=== PATIENT | male | born 1935 | race Caucasian/White ===

== ENCOUNTER 2017-07-08 10:33 | Observation (INO) ==
[2017-07-08 11:04] LABS: Basophils % 0.7 %; Eosinophils # 0.1 K/mcL (0.0-0.6); Hemoglobin 14.9 g/dL (12.9-16.9); Immature Granulocytes % 0.2 % (0-4); Lymphocytes # 1.6 K/mcL (0.6-4.6); Lymphocytes % 25.5 %; Mean Corpuscular HGB Conc 33.9 g/dL (31.6-35.5); Mean Corpuscular Hemoglobin 30.7 pg (28.0-33.3); Mean Corpuscular Volume 90.7 fL (83.0-100.0); Mean Platelet Volume 8.7 fL (9.4-12.4); Monocytes # 0.5 K/mcL (0.0-1.3); Monocytes % 8.2 %; Neutrophils # 3.9 K/mcL (1.6-8.9); Platelet Count 166 K/mcL (140-400); Red Blood Count 4.85 M/mcL (4.19-5.50); Red Cell Distribution Width 12.4 % (11.5-14.5); Segmented Neutrophils % 64.4 %
[2017-07-08 11:11] LABS: Prothrombin Time 10.3 Seconds (9.4-12.1)
[2017-07-08 11:14] LABS: Activated Partial Thrombo Time 30.6 Seconds (26.0-36.0)
[2017-07-08 11:15] LABS: BUN/Creatinine Ratio 13 (6-26); Blood Urea Nitrogen 15 mg/dL (8-26); Calcium 8.9 mg/dL (8.6-10.8); Carbon Dioxide 24 mEq/L (19-29); Chloride 104 mEq/L (98-109); Glucose 103 mg/dL (70-99); Osmolality,Calculated 289 (280-300); Potassium 4.5 mEq/L (3.5-4.5); Sodium 139 mEq/L (136-145); eGFR For African Americans > 60 (> 60); eGFR For Non-African Americans > 60 (> 60)
[2017-07-08] MEDS ORDERED: Aspirin 81 MG TAB.CHEW PO STA (11:23)
--- NOTE | 2017-07-08 11:31 | Emergency Department Note ---
Disposition Clinical Impression: Elevated troponin, Unstable angina Chest pain Qualifiers: Chest pain type: unspecified Qualified Code(s): R07.9 - Chest pain, unspecified Disposition: Admitted As Inpatient Condition: Fair Time of Disposition: 11:40 Chest Pain HPI - General Chief Complaint: ED Chest Pain Stated Complaint: chest pain Time Seen by Provider: 07/08/17 10:40 Source: patient Limitations: no limitations Vital Signs Reviewed: Yes Nursing Notes Reviewed: Yes - History of Present Illness HPI Narrative: 82-year-old male history of CAD s/p 2 stents (2009, 2005) presents to the ED for chest pain. He reports a heaviness on his chest with exertion. Last occurrence at 9 o'clock getting out of the shower. Pain improves with rest. He has some associated shortness of breath. This has become more frequent over the past 3 weeks. His landscape architect and planner Dr. Elias had called him to come to the emergency department for further evaluation and likely admission for unstable angina. He has nitride home but has not used any as rest typically resolves the pain. Patient denies any recent illness. He denies any history of blood clots. Denies any other complaints at this time. He is chest pain free at this time at rest. He has taken his baby aspirin this morning. Pt complaint: chest pain Severity scale (1-10): 0 - Related Data Home Medications Medication Instructions Recorded Confirmed Aspirin [Lo-Dose Aspirin EC] 81 mg PO DAILY 07/08/17 07/08/17 Finasteride [Proscar] 5 mg PO DAILY 07/08/17 07/08/17 Losartan [Cozaar] 25 mg PO DAILY 07/08/17 07/08/17 Metoprolol [Lopressor] 25 mg PO BID 07/08/17 07/08/17 Nitroglycerin [Nitrostat] 0.4 mg SL Q5M PRN 07/08/17 07/08/17 [place]-3/Dha/Epa/Fish Oil [Fish Oil 1 cap PO DAILY 07/08/17 07/08/17 1,000 mg Softgel] Simvastatin [Zocor] 40 mg PO HS 07/08/17 07/08/17 Vitamin E Acetate [Vitamin E] 400 unit PO DAILY 07/08/17 07/08/17 metFORMIN [Glucophage] 500 mg PO BID 07/08/17 07/08/17 Previous Rx's Medication Instructions Recorded Clopidogrel [Plavix] 75 mg PO DAILY #30 tablet 07/09/17 Allergies Allergy/AdvReac Type Severity Reaction Status Date / Time No Known Allergies Allergy Verified 07/08/17 11:00 All systems ED: reviewed and negative except as stated. Review of Systems: As Per HPI Constitutional: Denies: fever, chills ENT ED: Denies: congestion, dysphagia Cardiovascular: Reports: chest pain, dyspnea on exertion. Denies: palpitations Respiratory: Reports: dyspnea. Denies: cough Gastrointestinal: Denies: abdominal pain, nausea, vomiting Genitourinary: Denies: urgency, dysuria Musculoskeletal: Denies: back pain Integumentary: Denies: rash, abrasion Neurological: Denies: headache Chest Pain PMH - Past Medical History Medical history: Reports: coronary artery disease, hypertension Psychiatric history: Reports: no psych history - Social History Smoking Status: Never smoker Alcohol use: Reports: none Drug use: Reports: none Physical Exam - General Limitations: no limitations General appearance: alert - Head Head exam: atraumatic, normocephalic, normal inspection - Eye Eye exam: Present: normal appearance, PERRL, EOMI - ENT ENT exam: normal exam, normal oropharynx, mucous membranes moist - Neck Neck exam: Present: normal inspection, full ROM, trachea midline - Chest Chest inspection: Present: normal inspection, symmetric chest wall rise - Respiratory Respiratory exam: Present: normal lung sounds bilaterally. Absent: respiratory distress, wheezes - Cardiovascular Cardiovascular exam: Present: regular rate, normal rhythm, normal heart sounds. Absent: systolic murmur, diastolic murmur - Abdominal Exam Abdominal exam: Present: soft, Non-Tender, normal bowel sounds. Absent: tenderness, distention, guarding, rebound, rigidity - Extremities Exam Extremities exam: Present: normal inspection, full ROM, normal capillary refill. Absent: tenderness, pedal edema, calf tenderness - Back Exam Back exam: Present: normal inspection, full ROM. Absent: tenderness, CVA tenderness (R), CVA tenderness (L), vertebral tenderness - Neurological Exam Neurological exam: Present: alert, oriented X3 - Psychiatric Psychiatric exam: Present: normal affect, normal mood - Skin Skin exam: Present: warm, dry, intact, normal color Course - Reevaluation(s) Reevaluation #1: Critical Troponin 0.04. Patient has been given a full dose aspirin here. Vital signs remain stable. He remains asymptomatic at this time. He will be admitted for chest pain and unstable angina. Patient is in agreement with plan. Will not start on a low dose heparin drip at this time as patient is chest pain free and may require heart catheterization at landscape architect and planner discretion. - Consultations Consultation #1: Spoke with on-call hospitalist greyson Anna to admit for unstable angina, elevated troponin. No further orders at this time Time: 11:52 Vital Signs Temperature 97.7 F 07/08/17 10:48 Pulse Rate 57 07/08/17 10:48 Respiratory Rate 18 07/08/17 10:48 Blood Pressure 108/62 07/08/17 10:48 O2 Sat by Pulse Oximetry 99 07/08/17 10:48 Temperature 98.5 F 07/09/17 07:23 Pulse Rate 56 07/09/17 08:17 Respiratory Rate 18 07/09/17 07:23 Blood Pressure 145/69 07/09/17 07:23 O2 Sat by Pulse Oximetry 95 07/09/17 07:23 Oxygen Delivery Oxygen Delivery Room Air Chest Pain - MDM Narrative Medical decision making narrative: Patient was discussed with my attending physician who agrees with ED management and final disposition. They independently evaluated the patient. Please refer to their attestation to this encounter for additional information. This note was generated by [employer] voice recognition software and as a result grammatical or spelling errors may occur using this program. - Medical Records Medical records reviewed: Yes I reviewed the patient's medical records. - Lab Data Lab results reviewed: Yes I reviewed the patient's lab results. Result diagrams: 07/09/17 03:40 07/09/17 03:40 Lab Results 07/08/17 07/08/17 07/08/17 Range/Units 10:50 10:50 10:50 WBC 6.1 (4.3-11.1) K/mcL RBC 4.85 (4.19-5.50) M/mcL Hgb 14.9 (12.9-16.9) g/dL Hct 44.0 (37.5-50.1) % MCV 90.7 (83.0-100.0) fL MCH 30.7 (28.0-33.3) pg MCHC 33.9 (31.6-35.5) g/dL RDW 12.4 (11.5-14.5) % Plt Count 166 (140-400) K/mcL MPV 8.7 L (9.4-12.4) fL Immature Gran % 0.2 (0-4) % Seg Neutrophils % 64.4 % Lymphocytes % 25.5 % Monocytes % 8.2 % Eosinophils % 1.0 % Basophils % 0.7 % Neutrophils # 3.9 (1.6-8.9) K/mcL Lymphocytes # 1.6 (0.6-4.6) K/mcL Monocytes # 0.5 (0.0-1.3) K/mcL Eosinophils # 0.1 (0.0-0.6) K/mcL Basophils # 0.0 (0.0-0.2) K/mcL PT 10.3 (9.4-12.1) Seconds INR 1.0 APTT 30.6 (26.0-36.0) Seconds Sodium 139 (136-145) mEq/L Potassium 4.5 (3.5-4.5) mEq/L Chloride 104 (98-109) mEq/L Carbon Dioxide 24 (19-29) mEq/L BUN 15 (8-26) mg/dL Creatinine 1.12 (0.72-1.25) mg/dL Est GFR ( Amer) > 60 (> 60) Est GFR (Non-Af Amer) > 60 (> 60) BUN/Creatinine Ratio 13 (6-26) Glucose 103 H (70-99) mg/dL Calculated Osmolality 289 (280-300) Calcium 8.9 (8.6-10.8) mg/dL Troponin I (0-0.03) ng/mL 07/08/17 Range/Units 10:50 WBC (4.3-11.1) K/mcL RBC (4.19-5.50) M/mcL Hgb (12.9-16.9) g/dL Hct (37.5-50.1) % MCV (83.0-100.0) fL MCH (28.0-33.3) pg MCHC (31.6-35.5) g/dL RDW (11.5-14.5) % Plt Count (140-400) K/mcL MPV (9.4-12.4) fL Immature Gran % (0-4) % Seg Neutrophils % % Lymphocytes % % Monocytes % % Eosinophils % % Basophils % % Neutrophils # (1.6-8.9) K/mcL Lymphocytes # (0.6-4.6) K/mcL Monocytes # (0.0-1.3) K/mcL Eosinophils # (0.0-0.6) K/mcL Basophils # (0.0-0.2) K/mcL PT (9.4-12.1) Seconds INR APTT (26.0-36.0) Seconds Sodium (136-145) mEq/L Potassium (3.5-4.5) mEq/L Chloride (98-109) mEq/L Carbon Dioxide (19-29) mEq/L BUN (8-26) mg/dL Creatinine (0.72-1.25) mg/dL Est GFR ( Amer) (> 60) Est GFR (Non-Af Amer) (> 60) BUN/Creatinine Ratio (6-26) Glucose (70-99) mg/dL Calculated Osmolality (280-300) Calcium (8.6-10.8) mg/dL Troponin I 0.04 H* (0-0.03) ng/mL - Radiology Data Radiology results reviewed: Yes I reviewed the patient's radiology results. Chest X-Ray 07/08/17 10:40 IMPRESSION: No acute abnormality. D/ / David Mason MD / David Mason MD Interpreting Provider: David Mason MD - EKG Data EKG attestation: Yes I reviewed and interpreted this EKG. EKG results narrative: EKG performed 1041 sinus bradycardia 52 bpm, normal axis, old Q waves in inferior leads, no ST elevations or depression, no T wave inversion, intervals are within normal limits. Compared to old EKG performed 04/17/2000 shows sinus rhythm with significant ST elevation in inferior leads. No acute ischemic changes today. Heart Score - Score History: Highly Suspicious EKG: Non Specific repolarisation Disturbance Age: Greater than 65 Risk Factors: Equal/Greater than 3 risk factor or history of atherosclerotic disease Troponin: 1-3x normal limit HEART Score Total: 8 Attestation Statement - Attestation Attestation: I, Roberto Dawn, examined this patient and my medical decision-making was reviewed with the SCRUBBER OPERATOR/PA/Advanced Practice Nurse/Resident Physician. I agree with the documented findings, disposition and treatment plan as described except to the extent set forth below. 82-year-old male presents emergency department for evaluation of likely unstable angina. Patient has chest pain associated with increasingly light tasks at home. Pain improves with rest. Patient has no current pain in the emergency department. Last chest pain was this morning when showering. Patient spoke with his landscape architect and planner who recommended he be evaluated in emergency department for further care of his chest pain. Initial troponin negative. EKG did not show evidence of acute STEMI. She will be admitted for further evaluation of his acute chest pain.
--- NOTE | 2017-07-08 13:13 | Internal Med History&Physical ---
Date of Encounter: 07/08/17 Time of Encounter: 11:00 Assessment and Plan (1) Chest pain Current visit: Yes Status: Acute -Patient with chest pressure on exertion and found to have elevated troponin in the ER. -Will continue to trend troponins and monitor on telemetry. -Cardiology consulted and appreciate recommendations. Qualifiers: Chest pain type: unspecified Qualified Code(s): R07.9 - Chest pain, unspecified (2) CAD (coronary artery disease) Current visit: Yes Status: Acute -Patient with a history of cardiac stents 2 in 1999 and 2005. -ACS rule out as above. Qualifiers: Coronary Disease-Associated Artery/Lesion type: [place] artery Qualified Code(s): I25.10 - Atherosclerotic heart disease of [place] coronary artery without angina pectoris (3) HTN (hypertension) Current visit: Yes Status: Acute -Continue beta fatemeh Qualifiers: Hypertension type: essential hypertension Qualified Code(s): I10 - Essential (primary) hypertension (4) HLD (hyperlipidemia) Current visit: Yes Status: Acute -Continue statin. Qualifiers: Hyperlipidemia type: unspecified Qualified Code(s): E78.5 - Hyperlipidemia , unspecified (5) Diabetes Current visit: Yes Status: Acute -Will hold oral diabetic meds and cover with sliding scale insulin. Qualifiers: Diabetes mellitus type: type 2 Diabetes mellitus complication status: without complication Qualified Code(s): E11.9 - Type 2 diabetes mellitus without complications (6) BPH (benign prostatic hyperplasia) Current visit: Yes Status: Acute -Continue home dose of finasteride Qualifiers: Lower urinary tract symptom detail: unspecified Qualified Code(s): N40.1 - Benign prostatic hyperplasia with lower urinary tract symptoms Internal Medicine - H&P: HPI Chief complaint: chest pain Admitted From: Home Plans for Post Hospital Care: Home History of present illness: Patient is an 82-year-old male with past medical history significant for coronary arterial disease (stents 2 in ), hypertension, hyperlipidemia and diabetes who presents to the ER on 07/08/17 with chest pressure. Patient reports a three-week history of chest pressure on exertion which is substernal and is relieved with rest. Patient reports of associated symptoms of shortness of breath and fatigue. He states that his symptoms of chest pressure feels like his first UT in 1999. Patient was seen by his hearing therapist today and was sent to the ER for further evaluation and management. In the ER, patients first troponin was 0.04. Patient will be admitted to the medical surgical floor for management of non- STEMI. Past Med Surg Social Fam HX - Past Medical History Medical history: coronary artery disease, hypertension Psychiatric history: no psych history - Social History Smoking Status: Never smoker Smokeless Tobacco Status: No Alcohol use: none Drug use: none Internal Medicine - H&P: Meds Aspirin [Lo-Dose Aspirin EC] 81 mg PO DAILY 07/08/17 [History] Finasteride [Proscar] 5 mg PO DAILY 07/08/17 [History] Losartan [Cozaar] 25 mg PO DAILY 07/08/17 [History] Metoprolol [Lopressor] 25 mg PO BID 07/08/17 [History] Nitroglycerin [Nitrostat] 0.4 mg SL Q5M PRN 07/08/17 [History] [place]-3/Dha/Epa/Fish Oil [Fish Oil 1,000 mg Softgel] 1 cap PO DAILY 07/08/17 [ History] Simvastatin [Zocor] 40 mg PO HS 07/08/17 [History] Vitamin E Acetate [Vitamin E] 400 unit PO DAILY 07/08/17 [History] metFORMIN [Glucophage] 500 mg PO BID 07/08/17 [History] 3 Allergy/AdvReac Type Severity Reaction Status Date / Time No Known Allergies Allergy Verified 07/08/17 11:00 All Systems PM: A 10-system review of systems was performed and is negative for pertinent findings except as documented above in the HPI. - Constitutional Vitals: Temp Pulse Resp BP Pulse Ox 98 F 47 18 168/80 97 07/08/17 12:50 07/08/17 12:50 07/08/17 12:50 07/08/17 12:50 07/08/17 12:50 General appearance: Present: A&O X 3, no acute distress - Head Head exam: Present: normocephalic - Eye Eye exam: Present: normal appearance - ENT ENT exam: Present: mucous membranes moist - Expanded Neck Exam Neck exam: Absent: carotid bruit - Respiratory Respiratory exam: Present: CTAB. Absent: accessory muscle use, rales, rhonchi, wheezes - Cardiovascular Cardiovascular exam: Present: RRR, +S1, +S2. Absent: diastolic murmur, gallop, rubs, systolic murmur - GI/Abdominal GI/Abdominal exam: Present: normal bowel sounds, soft, no peritoneal signs. Absent: distended, tenderness - Extremities Exam Extremities exam: Absent: pedal edema - Neurological Exam Neurological exam: Present: oriented X3, no focal deficits - Psychiatric Psychiatric exam: Present: normal mood - Skin Skin exam: Present: normal color Internal Med - H&P Results - Labs CBC & Chem 7: 07/08/17 10:50 07/08/17 10:50
[2017-07-08] MEDS ORDERED: Naloxone 0.4 MG/ML INJ IVP PRN (13:17)
[2017-07-08] MEDS ORDERED: Nitroglycerin 0.4 MG TAB.SUBL SL PRN (13:20)
[2017-07-08] MEDS ORDERED: Dextrose Gel 15 GM PO PRN (13:27)
[2017-07-08] MEDS ORDERED: *HR* Heparin 5,000 UNIT/ML VIAL IVP PRN ×2 (13:59)
[2017-07-08] MEDS ORDERED: *HR* Heparin 5,000 UNIT/ML VIAL IVP ONE (13:59)
--- NOTE | 2017-07-08 13:59 | Event Note ---
<Buster Real - Last Filed: 07/08/17 14:09> Date of Encounter: 07/08/17 Time of Encounter: 13:50 - Cardiology Event Note Full cardiology H&P per clinic note by Dr. Elias. See scanned note in [facility] for details. Updates: Mr. Haney is an 82yo man with hx of htn, DM2, prior MIx2 with stents in 1998 and 2007 who presents to the ED per instructions by Dr. Elias for typical anginal chest pain that has been going on for 3 months. He has had chest pressure and pain that radiates to his arm, SOB, and nausea that is worsened by exertion and relieved by rest. These symptoms have been getting worse, and yesterday they reached a climax while taking a shower and completing ADLs. He says that the feeling is similar to previous MIs that he's had. Denies acute chest pain, SOB, diaphoresis, palpitations. Limited PE: Heart: S1,S2 normal, RRR, No murmurs, rubs, or gallops Lungs: CTAB with increased bronchial sounds Abdomen: Soft, non-tender Extremities: Trace b/l pedal edema Labs/Imaging: CXR: no acute findings EKG: Sinus bradycardia, flattened ST-T waves in lateral leads Trop 0.04 TTE (2012) LVEF 40% with dilated LV, Mild pulm htn. Repeat echo pending Plan: 1. Continue ASA, Statin, BB 2. Heparin, ACS Protocol 3. Repeat Echo, trend troponin 4. Patient will need LHC, maintain NPO until post-procedure <Casey Moscoso - Last Filed: 07/08/17 15:55> Date of Encounter: 07/08/17 - Cardiology Event Note I examined this patient and my medical decision-making was reviewed with the Resident Physician. I agree with the documented findings, disposition and treatment plan as described except to the extent set forth below. Unstable angina referred by Dr. Elias for LHC. EKG non acute
[2017-07-08] MEDS ORDERED: Heparin 25,000 UNIT/500 ML D5W 25,000 UNIT/500 ML MLS IVC SCH (14:00)
[2017-07-08 14:24] LABS: Hematocrit 42.2 % (37.5-50.1); Hemoglobin 14.4 g/dL (12.9-16.9); Mean Corpuscular HGB Conc 34.1 g/dL (31.6-35.5); Mean Corpuscular Volume 90.9 fL (83.0-100.0); Mean Platelet Volume 8.9 fL (9.4-12.4); Platelet Count 160 K/mcL (140-400); Red Blood Count 4.64 M/mcL (4.19-5.50); Red Cell Distribution Width 12.5 % (11.5-14.5)
[2017-07-08 14:33] LABS: Prothrombin Time 10.9 Seconds (9.4-12.1)
[2017-07-08 14:36] LABS: Activated Partial Thrombo Time 31.2 Seconds (26.0-36.0)
[2017-07-08] MEDS ORDERED: *HR* Heparin 10,000 UNIT/10 ML VIAL ONE (15:03)
[2017-07-08] MEDS ORDERED: 0.9 % Sodium Chloride 1,000 ML ONE ×2 (15:03→15:20)
[2017-07-08] MEDS ORDERED: Nitroglycerin 1,000 MCG/10 ML VIAL IV ONE (15:03)
--- NOTE | 2017-07-08 15:17 | Pre-Sedation Evaluation ---
Pre-sedation evaluation - Pre-sedation checklist Date of procedure: 07/08/17 Procedure: [facility] Recent Vitals: Last Vital Signs Temp 98 F 07/08/17 12:50 Pulse 47 07/08/17 12:50 Resp 18 07/08/17 12:50 BP 168/80 07/08/17 12:50 Pulse Ox 97 07/08/17 12:50 H&P (including ROS) documented in medical record: Yes Previous reaction to sedatives/anesthetics: No Dietary Status: NPO after Midnight Airway Assessment: Patient can open mouth completely, TMJ function normal, Micrognathia (under-bite, receding chin) absent, Neck with adequate range of motion Dentition: No loose teeth or bridges Possible difficult airway: No ASA Classification *see protocol: CLASS II-Mild systemic disease Plan of Care: Pt appropriate candidate for procedure/moderate/conscious sedation , Risks/benefits of procedure/sedation discussed w/ patient/family
[2017-07-08] MEDS ORDERED: *HR* Midazolam HCl 2 MG/2 ML VIAL ONE ×2 (15:18→15:43)
[2017-07-08] MEDS ORDERED: *HR* FentaNYL (PF) 100 MCG/2 ML VIAL ONE (15:18)
[2017-07-08] MEDS ORDERED: *HR* Bivalirudin 250 MG VIAL IVC ONE ×2 (15:32→16:02)
[2017-07-08] MEDS ORDERED: Nitroglycerin 25 MG/250 ML INFUS..BTL IVC ONE (15:34)
[2017-07-08] MEDS ORDERED: *HR* Ticagrelor 90 MG TABLET ONE (16:11)
[2017-07-08] MEDS ORDERED: Acetaminophen 325 MG TABLET PO PRN (16:25)
[2017-07-08] MEDS ORDERED: 0.9 % Sodium Chloride 1,000 ML IVC SCH (16:30)
--- NOTE | 2017-07-08 16:33 | Invasive Diagnostic Lab Proc ---
Name: Matt Haney Date of Study: 07/08/2017 Date: 1935 Ht: 68.9in Medical Record#: [id number] Age: 82 Wt: 184.97lb Gender: Male BSA: 2. Order #: [id number] BMI: 27.4 Physicians Procedure Physician: Keke Braun MD, FACC Referring MD: Referring MD: Staff Name Position Time In Annabella Guerra RT (R) Scrub 03:13 PM RobbieAlessandro RT (R) Monitor 03:13 PM Thaddeus Sterling RN Driver Salesman 03:13 PM Gabriele Tillman RN Driver Salesman 03:23 PM Indications Indication Non-Stemi Procedures Performed Procedure CORONARY ARTERY ANGIO S&I PRQ CARD MEENU STENT W/ANGIO 1 VSL PRQ CARD STENT W/ANGIO ADDL Pre-Procedure Checklist Informed consent is complete signed and on chart. H&P is on chart. ID band is on and ID verified with patient. Patient NPO for procedure The procedure was described for the patient and questions were answered. Blood Pressure: 197/94 ECG is on chart. Rhythm: NSR w 1st degree block Plan of Care Patient will tolerate the procedure without complications. Adequate level of comfort will be maintained. Hemodynamics will remain stable Patient will recover from procedure without complications. Respiratory function will be maintained. Cardiac rhythm will remain stable. Patient temperature will be maintained. Patient and/or family have verbalized understanding of the procedure. Patient Education Chief Complaint/Reason for Test: Cardiac Cath Developmental Category: Geriatric (65+ years) Developmentally Appropriate for Age: Yes Learning Barriers: None Education Needs: Procedure Education Method: Verbal Information Taught: Cardiac Cath Educational Evaluation: Able to repeat information Intravenous Access Time IV Size Location DC'd Fluid/Drip Rate Units RN 03:14 PM 18g 1 1/4" Peripheral-Lock On Arrival Rt Antecubital 0.9NaCl 25 ml Thaddeus Sterling RN Allergies No Known Allergies Vital Signs Time BP (mmHg) HR (bpm) O2 Sat. RR (bpm) LOC 03:14 PM 197 / 94 61 100 % 18 5 = Fully awake and oriented or at pre-proc level 03:14 PM / % 4 = Oriented but drowsy 03:29 PM / % 4 = Oriented but drowsy 03:45 PM / % 4 = Oriented but drowsy 04:00 PM / % 5 = Fully awake and oriented or at pre-proc level 03:21 PM 197 / 112 76 98 % 22 03:23 PM 204 / 101 61 100 % 17 03:25 PM 195 / 94 75 100 % 14 03:30 PM 190 / 92 68 96 % 13 03:35 PM 180 / 89 51 98 % 16 03:40 PM 181 / 87 68 98 % 19 03:45 PM 153 / 81 69 98 % 23 03:49 PM 144 / 84 71 96 % 23 03:54 PM 161 / 72 72 94 % 16 03:59 PM 162 / 85 68 96 % 14 04:05 PM 150 / 73 72 96 % 20 04:09 PM 146 / 72 75 96 % 16 04:15 PM 161 / 75 67 96 % 20 Procedural Medications Time Medication Dose Units Method Given By 03:22 PM Oxygen 2 L/min nasal cannula Thaddeus Sterling RN 03:22 PM Versed 2 mg Intravenous Thaddeus Sterling RN 03:22 PM Fentanyl 50 mcg Intravenous Thaddeus Sterling RN 03:27 PM Lidocaine 2% 16 ml Subcutaneous Keke Braun MD, FACC 03:39 PM Nitroglycerin 10 mcg/min Intravenous Gabriele Tillman RN 03:40 PM Angiomax 1.75mg/kg/hr: 13 ml Intravenous Gabriele Tillman RN 03:42 PM Angiomax 1.75mg/kg/hr: 30 ml Intravenous Gabriele Tillman RN 03:44 PM Versed 1 mg Intravenous Gabriele Tillman RN 03:44 PM Fentanyl 25 mcg Intravenous Gabriele Tillman RN 03:50 PM Nitroglycerin 200 mcg Intracoronary Keke Braun MD, FACC 03:50 PM Nitroglycerin 5 mcg/min Intravenous Gabriele Tillman RN 03:51 PM Nitroglycerin 200 mcg Intracoronary Keke Braun MD, FACC 03:59 PM Nitroglycerin 200 mcg Intracoronary Keke Braun MD, FACC 04:07 PM Nitroglycerin 200 mcg Intracoronary Keke Braun MD, FACC 04:15 PM Brilinta 180 mg Orally Gabriele Tillman RN ASA Classification: CLASS II- Mild systemic disease (i.e. well-controlled diabetes, hypertension, asthma, cigarette smoking) Keiry Score Preprocedure Postprocedure Activity 2- Moves 4 extremities sustained head lift Activity 2- Moves 4 extremities sustained head lift Circulation 2- SBP +/= 20 points of pre-anesthetic level Circulation 2- SBP +/= 20 points of pre-anesthetic level Consciousness 2- Awake and alert oriented x 3 Consciousness 2- Awake and alert oriented x 3 O2 Saturation 2- Able to maintain O2 satruation of 92% on room air O2 Saturation 2- Able to maintain O2 satruation of 92% on room air Respiratory 2- Able to deep breathe and cough well Respiratory 2- Able to deep breathe and cough well Total Score 10 Total Score 10 Contrast Agent: Isovue Diagnostic Contrast: 186 ml Total Contrast: 186 ml Fluoro Dose: 732 mGy Procedure Log Time Note Enter By 03:13 PM Annabella Guerra RT (R) Position: Scrub Time in: 15:13 [email or web address] 03:13 PM Alessandro Avalos RT (R) Position: Monitor Time in: 15:13 [email or web address] 03:13 PM Thaddeus Sterling RN Position: Driver Salesman Time in: 15:13 [email or web address] 03:13 PM Patient charges- Angio tray pack, Navilyst 3mm J, Pulse Oximetry and ACIST tubing and transducer [email or web address] 03:14 PM Pt arrived to laborer/key man 1 at 15:14 [email or web address] 03:14 PM Time: 15:14 Patient comfortable and pain free: Yes [email or web address] 03:14 PM Time: 15:14LOC: 5 = Fully awake and oriented or at pre-proc level [email or web address] 03:15 PM Physician arrived 15:15 [email or web address] 03:15 PM Meet and greet completed [email or web address] 03:15 PM Sign in performed according to hospital policy. [email or web address] 03:15 PM Procedure start 15:15 [email or web address] 03:15 PM CathStat 03:16 PM ASA Class CLASS II- Mild systemic disease (i.e. well-controlled diabetes, hypertension, asthma, cigarette smoking) [email or web address] 03:17 PM Case Delayed No [email or web address] 03:19 PM Hair removed from procedure site in holding area using clippers. Bilateral groin prepped with Chloraprep by Constance Villasenor RT (R), safety strap applied then patient was draped. Skin intact. [email or web address] 03:19 PM Vitals capture started with the following parameters, Patient=Adult, Interval=5 min, Initial Siebtnga=700 mmHg, Deflation Rate=5 mmHg, Cuff placed on Right Arm 03:19 PM Recorded ECG: HR=75 Condition=Condition 1 03:21 PM HR=76 bpm, DTGT=893/112 mmhg, SpO2=98.0 %, Resp=22 B/min 03:22 PM Time: 15:22 Oxygen on at 2 L/min per nasal cannula by Thaddeus Sterling RN 03: PM Time: 15:22 Versed 2 mg Intravenous Given by Thaddeus Sterling RN 03: PM Time: 15:22 Fentanyl 50 mcg Intravenous Given by Thaddeus Sterling RN 03:22 PM Vitals capture stopped. 03:22 PM Vitals capture started with the following parameters, Patient=Adult, Interval=5 min, Initial Heultjmh=622 mmHg, Deflation Rate=5 mmHg, Cuff placed on Right Arm 03:23 PM Gabriele Tillman RN Position: Driver Salesman Time in: 15:23 03:23 PM HR=61 bpm, EPRL=285/101 mmhg, SfN9=836.0 %, Resp=17 B/min 03:24 PM Vitals capture stopped. 03:24 PM Vitals capture started with the following parameters, Patient=Adult, Interval=5 min, Initial Gsvfnffq=992 mmHg, Deflation Rate=5 mmHg, Cuff placed on Right Arm 03:25 PM HR=75 bpm, OHKD=469/94 mmhg, GlT7=452.0 %, Resp=14 B/min 03:25 PM Time out performed according to hospital policy 03:25 PM Clinical Presentation: Non-STEMI 03:26 PM Pressure channel 1 zero failed. 03:27 PM Pressure channel 1 zeroed. 03:28 PM Time: 15:27 16 ml Lidocaine 2% to right groin Subcutaneous Given by Keke Braun MD, [facility] 03:28 PM Access obtained by percutaneous puncture. 5Fr 10cm Terumo Tyler sheath placed in right Femoral artery. [id number] 03:28 PM 0.035 145cm Navilyst 3mmJ wire [id number] [facility] 03:28 PM 5Fr FL 4 catheter inserted over the wire [facility] 03:29 PM Recorded Pressure: Ao, HR=69, Condition=Condition 1 (Aorta) Ao 220/71/127 03:29 PM Pressure channel 1 zeroed. 03:29 PM Time: 15:14LOC: 4 = Oriented but drowsy [email or web address] 03:29 PM Time: 15:14 Patient comfortable and pain free: Yes [email or web address] 03:30 PM LCA angiography performed in multiple views. [email or web address] 03:30 PM HR=68 bpm, WQTY=693/92 mmhg, SpO2=96.0 %, Resp=13 B/min 03:30 PM Recorded Pressure: Ao, HR=66, Condition=Condition 1 (Aorta) Ao 167/80/116 03:31 PM Catheter removed [email or web address] 03:31 PM 5Fr FR 4 catheter inserted over the wire DN [email or web address] 03:32 PM RCA angiography performed in multiple views. [email or web address] 03:33 PM Recorded Pressure: Ao, HR=54, Condition=Condition 1 (Aorta) Ao 165/70/112 03:33 PM Catheter removed [email or web address] 03:33 PM Physician reviewing films [email or web address] 03:34 PM Coronary Dominance: right [email or web address] 03:35 PM HR=51 bpm, TNHJ=551/89 mmhg, SpO2=98.0 %, Resp=16 B/min 03:36 PM Lesion found in Proximal LAD. Pre Stenosis: 99 Pre CLEMENTINA Flow: [email or web address] 03:36 PM Proximal Left Anterior Descending Coronary Artery with 99% stenosis. If graft is supplying this territory, 0 % stenosis. [email or web address] 03:36 PM Sheath exchanged for a 6 Fr 11 cm Cordis Carline sheath [id number] [email or web address] 03:36 PM Inflation device was opened. [email or web address] 03:39 PM Time: 15:39 Nitroglycerin 10 mcg/min Intravenous Given by Gabriele Tillman RN Milton pump [email or web address] 03:40 PM HR=68 bpm, YHEY=908/87 mmhg, SpO2=98.0 %, Resp=19 B/min 03:40 PM 6Fr XB LAD 3.5 Black Bright-Tip guide catheter was used to cannulate the PCI vessel successfully. reused? No [email or web address] 03:40 PM Time: 15:40 Angiomax 1.75mg/kg/hr: 13 ml Intravenous Given by Gabriele Tillman RN [place] pump [email or web address] 03:41 PM .014 Prowater 180cm guide wire across target lesion- successful. reused? No [email or web address] 03:43 PM Time: 15:42 Angiomax 1.75mg/kg/hr: 30 ml Intravenous Given by Gabriele Tillman RN Milton pump ilson 03:44 PM 2.0 mm x 8 mm Emerge Monorail balloon across target lesion- successful. reused? No [email or web address] 03:44 PM Time: 15:44 Versed 1 mg Intravenous Given by Gabriele Tillman RN ilson 03:44 PM Time: 15:44 Fentanyl 25 mcg Intravenous Given by Gabriele Tillman RN ilson 03:44 PM Balloon inflated @ 8 bea for 6 seconds [email or web address] 03:45 PM HR=69 bpm, QFDA=875/81 mmhg, SpO2=98.0 %, Resp=23 B/min 03:45 PM Balloon inflated @ 10 bea for 20 seconds [email or web address] 03:45 PM Time: 15:29LOC: 4 = Oriented but drowsy [email or web address] 03:45 PM Time: 15:29 Patient comfortable and pain free: Yes [email or web address] 03:45 PM Balloon inflated @ 10 bea for 15 seconds [email or web address] 03:46 PM Recorded Pressure: Ao, HR=70, Condition=Condition 1 (Aorta) Ao 168/73/111 03:47 PM 2.25mm x 12mm Synergy drug-eluting stent across target lesion- successful Lot #[id number] [email or web address] 03:48 PM Stent deployed @ 12 bea for 30 seconds [email or web address] 03:49 PM Stent balloon reinflated @ 14 bea for 15 seconds [email or web address] 03:49 PM Stent delivery system removed intact. [email or web address] 03:49 PM HR=71 bpm, YTKQ=667/84 mmhg, SpO2=96.0 %, Resp=23 B/min 03:50 PM Time: 15:50 Nitroglycerin 200 mcg Intracoronary Given by Keke Braun MD, [facility] [email or web address] 03:50 PM Time: 15:50 Nitroglycerin 5 mcg/min Intravenous Given by Gabriele Tillman RN [place] pump [email or web address] 03:51 PM Time: 15:51 Nitroglycerin 200 mcg Intracoronary Given by Keke Braun MD, [facility] [email or web address] 03:53 PM Lesion found in Mid LAD. Pre Stenosis: 80 Pre CLEMENTINA Flow: 2 03:53 PM Mid/Distal Left Anterior Descending Coronary Artery and diagonal branches with 80% stenosis. If graft is supplying this area, 0 % stenosis 2 03:54 PM 2.25mm x 16mm Synergy drug-eluting stent across target lesion- successful Lot #[id number] [email or web address] 03:54 PM HR=72 bpm, JCXK=399/72 mmhg, SpO2=94.0 %, Resp=16 B/min 03:55 PM Stent delivery system removed intact. not deployed [email or web address] 03:56 PM 2.25mm x 20mm Synergy drug-eluting stent across target lesion- successful Lot #[id number] [email or web address] 03:58 PM Stent deployed @ 12 bea for 30 seconds [email or web address] 03:59 PM Stent balloon reinflated @ 18 bea for 15 seconds [email or web address] 03:59 PM Stent delivery system removed intact. [email or web address] 03:59 PM HR=68 bpm, KRVC=565/85 mmhg, SpO2=96.0 %, Resp=14 B/min 04:00 PM Time: 15:59 Nitroglycerin 200 mcg Intracoronary Given by Keke Braun MD, [facility] [email or web address] 04:00 PM Time: 15:45 Patient comfortable and pain free: Yes [email or web address] 04:00 PM Time: 15:45LOC: 4 = Oriented but drowsy [email or web address] 04:01 PM Lesion found in 1st Marginal. Pre Stenosis: 95 Pre CLEMENTINA Flow: [email or web address] 04:01 PM Circumflex, Obtuse Marginal, Left Posterior Descending, and Left Posterolateral Coronary Arteries with 95 % stenosis. If graft is supplying this area, 0 % stenosis [email or web address] 04:01 PM wire removed from LAD and put down OM1. [email or web address] 04:03 PM 2.6snb4wu emerge balloon [email or web address] 04:04 PM Balloon inflated @ 10 bea for 20 seconds [email or web address] 04:04 PM Balloon catheter removed intact. [email or web address] 04:04 PM 2.51cjd24bt synergy MEENU advanced [email or web address] 04:05 PM HR=72 bpm, MOBP=016/73 mmhg, SpO2=96.0 %, Resp=20 B/min 04:05 PM Recorded Pressure: Ao, HR=71, Condition=Condition 1 (Aorta) Ao 136/62/93 04:06 PM Stent deployed @ 14 bea for 30 seconds [email or web address] 04:07 PM Stent balloon reinflated @ 16 bea for 10 seconds [email or web address] 04:07 PM Stent delivery system removed intact. [email or web address] 04:07 PM Time: 16:07 Nitroglycerin 200 mcg Intracoronary Given by Keke Braun MD, FACC [email or web address] 04:08 PM Guide wire removed intact. [email or web address] 04:09 PM Recorded Pressure: Ao, HR=71, Condition=Condition 1 (Aorta) Ao 135/59/89 04:09 PM Guide catheter removed intact. [email or web address] 04:09 PM HR=75 bpm, YQFE=330/72 mmhg, SpO2=96.0 %, Resp=16 B/min 04:09 PM Bolus angiogram of right Femoral complete: 4 ml/sec for a total of 7 mls [email or web address] 04:10 PM Procedure completed at 16:10 [email or web address] 04:11 PM Sign out completed: Radiation Dose 731.56 mGy Fluoro Time: 9.9 Isovue 370 - 200ml contrast 186 ml given by Keke Braun MD, FAC. Complications: NoneCardiac Rehab Consult needed: YesConfirmed administered medications: Yes [email or web address] 04:11 PM Sheath left in place to be pulled on floor/holding areaV+Pad [email or web address] 04:11 PM Estimated Blood Loss: minimal [email or web address] 04:11 PM Family placed in consult room. [email or web address] 04:11 PM Post Blood Pressure 146/72 [email or web address] 04:11 PM 16:11 Post Pulses Bilateral DP & PT 1+ [email or web address] 04:12 PM Information taught Cardiac Cath and PCI [email or web address] 04:13 PM Education needs Procedure, Plan of Care, and Disease Process [email or web address] 04:13 PM Learning barriers :Sedated [email or web address] 04:13 PM Education Methods Verbal [email or web address] 04:13 PM Education evaluation Needs further instruction [email or web address] 04:13 PM Site status No bleeding/hematoma - Rt Groin as reported by Annabella Guerra RT (R) at 16:13 [email or web address] 04:13 PM Opsite applied [email or web address] 04:13 PM Delay to floor No [email or web address] 04:13 PM Complications: None [email or web address] 04:13 PM Fluoro Time: 9.9 [email or web address] 04:13 PM Isovue 370 - 200ml contrast 186 ml given by Keke Braun MD, FACC. [email or web address] 04:13 PM Radiation Dose 731.56 mGy [email or web address] 04:14 PM Lesion found in Proximal RCA. Pre Stenosis: 30 Pre CLEMENTINA Flow: [email or web address] 04:14 PM Right Coronary, Right Posterior Descending Arteries with Right Posterolateral and Acute Marginal branches with 30 % stenosis. If graft is supplying this area, 0 % stenosis [email or web address] 04:14 PM Lesion found in Mid RCA. Pre Stenosis: 25 Pre CLEMENTINA Flow: [email or web address] 04:14 PM Lesion found in Distal RCA. Pre Stenosis: 30 Pre CLEMENTINA Flow: [email or web address] 04:14 PM Lesion found in LMCA. Pre Stenosis: 15 Pre CLEMENTINA Flow: [email or web address] 04:14 PM Left Main Coronary Artery with 15% stenosis [email or web address] 04:14 PM Lesion found in Proximal Circumflex. Pre Stenosis: 30 Pre CLEMENTINA Flow: [email or web address] 04:15 PM Time: 16:15 Brilinta 180 mg Orally Given by Gabriele Tillman RN [email or web address] 04:15 PM HR=67 bpm, WOZD=347/75 mmhg, SpO2=96.0 %, Resp=20 B/min 04:15 PM Time: 16:00LOC: 5 = Fully awake and oriented or at pre-proc level [email or web address] 04:16 PM Time: 16:00 Patient comfortable and pain free: Yes [email or web address] 04:19 PM Vitals capture stopped. 04:22 PM Report given to kaila DALLAS Pt taken to 2N Room #5. 16:20 [email or web address] 04:25 PM Patient out of room: 16:25 [email or web address] Complications Complication None None Hemodynamics Pressures Site Systolic/A Wave Diastolic/V Wave Mean AO 220 71 127 AO 167 80 116 AO 165 70 112 AO 168 73 111 AO 136 62 93 AO 135 59 89 Post Procedure Information Blood Pressure: 146/72 mmHg Post procedural instructions were given Site Checks Time Location Status Staff Sheath In? Note 04:13 PM Rt Groin No bleeding/hematoma Annabella Guerra RT (R) Pulses Time Site Pre-Procedure Post-Procedure Note 07/08/2017 3:15:00 PM Bilateral DP & PT 1+ 4:11:00 PM Bilateral DP & PT 1+ Updated by Alessandro Avalos RT (R) on 07/08/2017 4:25:55 PM RT Lary electronically signed on 07/08/2017 4:26:22 PM with status of Final
[2017-07-08] MEDS ORDERED: Nitroglycerin 25 MG/250 ML INFUS..BTL IVC SCH (19:15)
[2017-07-08] MEDS ORDERED: *HR* Atropine Sulfate 1 MG/10 ML SYRINGE ONE (20:09)
[2017-07-09 04:27] LABS: Basophils % 0.4 %; Eosinophils # 0.1 K/mcL (0.0-0.6); Hematocrit 38.9 % (37.5-50.1); Hemoglobin 13.6 g/dL (12.9-16.9); Immature Granulocytes % 0.3 % (0-4); Lymphocytes % 14.1 %; Mean Corpuscular Hemoglobin 31.4 pg (28.0-33.3); Mean Corpuscular Volume 89.8 fL (83.0-100.0); Mean Platelet Volume 9.2 fL (9.4-12.4); Monocytes # 0.8 K/mcL (0.0-1.3); Monocytes % 10.5 %; Neutrophils # 5.3 K/mcL (1.6-8.9); Platelet Count 142 K/mcL (140-400); Red Blood Count 4.33 M/mcL (4.19-5.50); Red Cell Distribution Width 12.5 % (11.5-14.5); Segmented Neutrophils % 73.7 %
[2017-07-09 04:43] LABS: BUN/Creatinine Ratio 12 (6-26); Blood Urea Nitrogen 14 mg/dL (8-26); Calcium 8.4 mg/dL (8.6-10.8); Carbon Dioxide 28 mEq/L (19-29); Chloride 106 mEq/L (98-109); Glucose 155 mg/dL (70-99); Osmolality,Calculated 292 (280-300); Potassium 4.3 mEq/L (3.5-4.5); Sodium 139 mEq/L (136-145); eGFR For African Americans > 60 (> 60); eGFR For Non-African Americans 59 (> 60)
[2017-07-09 07:25] VITALS: BP 145/69
--- NOTE | 2017-07-09 08:10 | Discharge Summary ---
Date of Encounter: 07/10/17 Time of Encounter: 08:05 - Discharge Diagnosis (1) NSTEMI (non-ST elevated myocardial infarction) Priority: Primary Status: Acute (2) Chest pain Priority: Primary Status: Acute Qualifiers: Chest pain type: unspecified Qualified Code(s): R07.9 - Chest pain, unspecified (3) HTN (hypertension) Priority: Secondary Status: Acute Qualifiers: Hypertension type: essential hypertension Qualified Code(s): I10 - Essential (primary) hypertension (4) HLD (hyperlipidemia) Priority: Secondary Status: Acute Qualifiers: Hyperlipidemia type: unspecified Qualified Code(s): E78.5 - Hyperlipidemia , unspecified (5) CAD (coronary artery disease) Priority: Primary Status: Acute Qualifiers: Coronary Disease-Associated Artery/Lesion type: [place] artery [place] vs. transplanted heart: [place] heart Associated angina: without angina Qualified Code(s): I25.10 - Atherosclerotic heart disease of [place] coronary artery without angina pectoris - Discharge Medications Prescriptions: Clopidogrel [Plavix] 75 mg PO DAILY #30 tablet Home Medications: Aspirin [Lo-Dose Aspirin EC] 81 mg PO DAILY 07/08/17 [History] Finasteride [Proscar] 5 mg PO DAILY 07/08/17 [History] Losartan [Cozaar] 25 mg PO DAILY 07/08/17 [History] Metoprolol [Lopressor] 25 mg PO BID 07/08/17 [History] Nitroglycerin [Nitrostat] 0.4 mg SL Q5M PRN 07/08/17 [History] [place]-3/Dha/Epa/Fish Oil [Fish Oil 1,000 mg Softgel] 1 cap PO DAILY 07/08/17 [ History] Simvastatin [Zocor] 40 mg PO HS 07/08/17 [History] Vitamin E Acetate [Vitamin E] 400 unit PO DAILY 07/08/17 [History] metFORMIN [Glucophage] 500 mg PO BID 07/08/17 [History] Clopidogrel [Plavix] 75 mg PO DAILY #30 tablet 07/09/17 [Rx] Allergies/Adverse Reactions: 3 Allergy/AdvReac Type Severity Reaction Status Date / Time No Known Allergies Allergy Verified 07/08/17 11:00 Procedures/tests Complete & Pending: Procedures Performed prior 72 hours Category Date Time Status CL Cardiac Catheterization [CL] Routine Gang Supervisor Pipe Lines 12/08/17 14:02 Completed ECG 12 lead ECG [ECG] Stat Y 07/08/17 16:24 Ordered EV echocardiogram Routine Y 07/09/17 13:35 Completed Date of admission: 07/08/17 12:47 Primary care physician: Porfirio Bearden MD Consults: 07/08/17 13:19 Consult to Cardiology [CONS] Routine Comment: Consulting Provider: Cardiology [place] Reason for Consult: chest pain with elevated troponin Time Notified: 16:00 Call Completed: Yes 07/08/17 16:26 Consult to Cardiac Rehabilitation-Phase1 [CONS] Routine Comment: Reason for Consult: CAD s/p PCI Call Completed: Yes - Patient Status Disposition: Home, Self-Care Condition: Fair Overall status at discharge: patient is back to baseline - Discharge Instructions Instructions: Myocardial Infarction (DC) Follow Up With: Porfirio Bearden MD [Primary Care Provider] - Syed Elias DO [Partnered Physician] - Additional Instructions: RISK FACTORS: STOP SMOKING: If you smoke, STOP. Smoking or tobacco use significantly increases your risk of heart disease because nicotine causes the arteries to narrow or constrict. It also causes fats to stick to the artery. Your chances of having a heart attack are greatly increased if you continue to smoke. For more information, call the education line for smoking cessation 8-874-CKDBLGY EAT A LOW FAT/CHOLESTEROL/SODIUM DIET: This diet may help reduce your chances of having a heart attack. LIFTING: Avoid lifting anything more than 10 pounds for 5-7 days Prior to straining, laughing, sneezing and/or coughing, apply manual pressure directly over insertion site. ACTIVITY: You may walk or climb stairs as tolerated You can resume sexual activity as tolerated In general, you are encouraged to engage in a minimum of 30 minutes or more of moderate intensity physical activity, such as brisk walking, daily or at least 3 -4 times weekly BATHING Do not submerge the site into water (bath tub, hot tub, swimming pool) for 1 week. This can be a source for infection into the blood stream. You may shower after 24 hours SITE CARE: After 24 hours, you may remove the dressing and leave the site open to air. Keep the site clean and dry. Clean gently and pat dry. You can expect bruising and tenderness that gradually resolve within a week or two. Return to work as instructed per your physician Resume driving as instructed per physician Keep all scheduled follow up appointments Resume medications as instructed IMPORTANT: If prescribed a Platelet Aggregation Inhibitor such as, Plavix, Brilinta or Effient: Duration of therapy is minimum one year These medications are often used in combination with Aspirin in prevention of future heart attacks Never discontinue unless consult with your Street Cleaner STROKE (CVA) Risk factors for a stroke are: Age, cigarette smoking, diabetes, excessive alcohol consumption, family history, high blood pressure, overweight, physical inactivity, prior stroke, heart attack, diagnosis of carotid artery stenosis or other artery disease. Warning signs: Sudden numbness or weakness of the face, arm or leg; especially on one side of the body, sudden confusion, trouble speaking or understanding, sudden trouble seeing in one or both eyes, sudden trouble walking, dizziness, loss of balance or coordination, sudden severe headache with no cause. Call 911 or go to the Emergency Room. CONGESTIVE HEART FAILURE: If you have been diagnosed with Congestive Heart Failure (CHF) and your symptoms return, make an appointment with your physician Weigh yourself daily. Notify your physician if you have a weight gain of two or more pounds in one day or five or more pounds in one week. If you experience any difficulty breathing, please call 911 BLEEDING: Although the risk of bleeding is minimal, it can happen. If you have any bleeding from the site, apply firm pressure above the puncture site for 10-15 minutes. If the bleeding does not stop, continue manual pressure and call 911 Contact your physician if: You develop a fever greater than 101 degrees Fahrenheit Your site becomes reddened or has any drainage You have an increase in pain or burning at the site or if a large knot forms at the site. If you experience chest pain, shortness of breath, dizziness, or extreme tiredness, stop the activity and rest. Please notify your physicians office if you experience any of these symptoms and they are not relieved by rest please call 911! - Diet and Activity Activity: resume usual activities as tolerated Diet: low salt diet Hospital course: Mr. Haney is a 82 year old male past medical history significant for coronary arterial disease (stents 2 in ), hypertension, hyperlipidemia and diabetes who presents to the ER on 07/08/17 with chest pressure. He had no EKG changes were ST or T-wave abnormalities. He did have elevated troponins and was put on heparin drip. He had cardiology consult. He was taken for a left heart catheterization given his history of coronary artery disease with multiple risk factors as well as multiple stents. His heart catheterization showed triple-vessel coronary artery disease. He had successful intervention with drug-eluting stents placed in the proximal LAD as well as the mid LAD and the OM. He had Plavix added to his regimen of cardiac medications. He was stable for discharge the following day after his heart catheterization. He will need to follow-up with his primary care physician as well as cardiology. Patient was stable for discharge on 07 09 2017. - Time Spent with Patient Total time spent providing and/or coordinating discharge services: - Constitutional Vitals: Temp Pulse Resp BP Pulse Ox 98.5 F 61 18 145/69 95 07/09/17 07:23 07/09/17 07:23 07/09/17 07:23 07/09/17 07:23 07/09/17 07:23 General appearance: Present: A&O X 3, no acute distress Exam: GEN: NAD CVS: RRR. S1, S2, No m/r/g RESP: CTAB ABD: Soft, NT, ND, +BS EXT: No edema. 2+ DP. No rashes NEURO: Nonfocal
[2017-07-09] MEDS ORDERED: Finasteride 5 MG TABLET PO SCH (09:00)
[2017-07-09] MEDS ORDERED: Aspirin Enteric Coated 81 MG Tablet PO SCH (09:00)
--- NOTE | 2017-07-09 10:00 | Event Note ---
Date of Encounter: 07/09/17 Time of Encounter: 08:30 - Cardiology Event Note Late entry, Upon entering room, patient was dressed with bags in hand ready to leave. Patient refused right groin site assessment. Right groin site management education reviewed with patient. Nayeli educated on importance of dual anti- platelet therapy uninterrupted for at least one year. Patient states understanding. Cardiology follow up will be set.
--- NOTE | 2017-07-09 13:18 | Electrocardiograph Report ---
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
--- NOTE | 2017-07-11 01:56 | Electrocardiograph Report ---
[address] [place] [address] Test Date: 2017-07-08 Pat Name: Matt Haney Department: 112 Room: 2N05 Gender: M Validation Manager: VICKY : 1935 Requested By: Arturo Contreras Order Number: [id number] Reading MD: Brannon Dejesus MD Measurements Intervals [place] Rate: 50 P: 82 NM: 212 QRS: 1 QRSD: 118 T: -14 QT: 422 QTc: 395 Interpretive Statements SINUS BRADYCARDIA WITH PACS WITH FIRST DEGREE AV BLOCK LEFT VENTRICULAR HYPERTROPHY AND ST-T CHANGE INFERIOR MYOCARDIAL INFARCTION, OF INDETERMINATE AGE Electronically Signed On 07-11-2017 1:54:43 EST by Brannon Dejesus MD
--- NOTE | 2017-07-11 02:17 | Electrocardiograph Report ---
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
== END 2017-07-09 09:15 | disposition home or self-care (01) ==
LOC: EMEROO 10:33 → 2ANU 10:33 → 2NNU 16:25
PROVIDERS: ADMIT Hospitalist; ATTEND Internal Medicine

== ENCOUNTER 2018-01-27 17:01 | Inpatient (IN) ==
--- NOTE | 2018-01-27 17:28 | Emergency Department Note ---
Disposition Clinical Impression: Chest pain Qualifiers: Ischemic chest pain type: unstable angina pectoris Disposition: Still a Patient Condition: Undetermined Referrals: Porfirio Bearden MD [Primary Care Provider] - Forms: ED Satisfaction Letter Time of Disposition: 19:38 Chest Pain HPI - General Chief Complaint: ED Chest Pain Stated Complaint: heart problems Time Seen by Provider: 01/27/18 17:15 Source: patient Limitations: no limitations Vital Signs Reviewed: Yes Nursing Notes Reviewed: Yes - History of Present Illness HPI Narrative: 82 yo male presents from home for evaluation of chest pain. This has been intermittent for the past 4 days. Described as a dull heavy ache across his chest radiating town both arms as well as to his back. No associated nausea, vomiting, dyspena, diaphoresis, or abdominal pain. These symptoms occur at rest. With each occurrence, he takes a single SL nitro of his own prescription. This relieves his pain. He notes that his symptoms are coming more frequently and the nitro is becoming less effective. At its most intense, his pain is rated 8/10. Currently he is 2/10 as he took a SL jasmyne prior to presentation. PMH: Hypertension, hyperlipidemia, diabetes type 2. CAD with ACS status post stent 5. 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 Suazo Severity scale (1-10): 4 - Related Data Home Medications Medication Instructions Recorded Confirmed Aspirin [Lo-Dose Aspirin EC] 81 mg PO DAILY 07/08/17 07/08/17 Finasteride [Proscar] 5 mg PO DAILY 07/08/17 07/08/17 Losartan [Cozaar] 25 mg PO DAILY 07/08/17 07/08/17 Metoprolol [Lopressor] 25 mg PO BID 07/08/17 07/08/17 Nitroglycerin [Nitrostat] 0.4 mg SL Q5M PRN 07/08/17 07/08/17 [place]-3/Dha/Epa/Fish Oil [Fish Oil 1 cap PO DAILY 07/08/17 07/08/17 1,000 mg Softgel] Simvastatin [Zocor] 40 mg PO HS 07/08/17 07/08/17 Vitamin E Acetate [Vitamin E] 400 unit PO DAILY 07/08/17 07/08/17 metFORMIN [Glucophage] 500 mg PO BID 07/08/17 07/08/17 Previous Rx's Medication Instructions Recorded Clopidogrel [Plavix] 75 mg PO DAILY #30 tablet 07/09/17 Allergies Allergy/AdvReac Type Severity Reaction Status Date / Time No Known Allergies Allergy Verified 07/08/17 11:00 All systems ED: reviewed and negative except as stated. Review of Systems: As Per HPI Chest Pain PMH - Past Medical History Medical history: Reports: coronary artery disease, hypertension Psychiatric history: Reports: no psych history - Social History Smoking Status: Never smoker Alcohol use: Reports: none Drug use: Reports: none Physical Exam Vital Signs Reviewed General: Patient is alert, oriented, and in no acute distress. Head: atraumatic, normocephalic Eye: normal appearance, no scleral icterus, no conjunctival injection ENT: mucous membranes moist, normal external ear exam Neck: normal inspection, trachea midline, full ROM Chest: normal inspection, symmetric chest rise Respiratory: Good respiratory effort. Bilateral breath sounds are clear without wheezing, crackles, or rhonchi. Cardiovascular: Regular rate and rhythm. No clicks, rubs, gallops, or murmors. Normal heart sounds. Bilateral radial pulses 2/4 equal. Abdomen: Bowel sounds present normoactive x-4 quadrants. Abdomen is soft, nondistended, and nontender. No guarding or rebound. No organomegaly noted. Musculoskeletal: Spontaneously moving all extremities. Skin: warm, dry, intact. Neuro: Alert and oriented x4. Sensation light touch intact. Psych: Patient's affect is appropriate for situation. - General Limitations: no limitations General appearance: alert, in no apparent distress Course Course Narrative: Patient's story is concerning as well as is his past medical history. EKG does show T-wave inversions that are new from EKG approximate 6-1/2 months ago. Serum chemistry is unremarkable; specifically troponin less than 0.03. Suspect unstable angina. Will hold epi drip until patient again becomes symptomatic. He is hypertensive however asymptomatic with his hypertension and this has improved by about 50% since intake. 18:40 Patient reevaluated. He remains comfortable. 19:05 Patient reevaluated. His chest pain is returning. He remains hypertensive with systolic in the low 200s. Will nitroglycerin drip. Additionally, patient has just returned from CT scan. He is now hypoxic to the high 80s on room air and is requiring 4 L nasal cannula to maintain saturation in the 90s. CT scan pending. I discussed the above with the oncoming night physicians, Dr. Olivas and Dr. Hale. I discussed the lab studies, concerning history, anticipated disposition. EKG #1 EKG dated 01/27/18 at 17:25 interpreted as sinus rhythm with rate of 61. NH 136 , QRS 118, QTC 455. Normal axis. T-wave inversions in leads V3, V4, V5, V6 which are new compared to previous EKG dated 07/08/2017. Otherwise no ST-T changes. EKG #2 EKG dated 01/27/18 at 18:14 interpreted as sinus bradycardia with a rate of 56. First-degree AV block with NH 213. QRS 2018, QTC 490. Normal axis. T-wave inversions in leads V3 through V6. Consistent with EKG #1 above and new from previous EKG dated 07/08/2017. Otherwise no ST-T changes. Vital Signs Temperature 98.2 F 01/27/18 17:07 Pulse Rate 67 01/27/18 17:07 Respiratory Rate 18 01/27/18 17:07 Blood Pressure 227/87 01/27/18 17:07 O2 Sat by Pulse Oximetry 97 01/27/18 17:07 Temperature 98.2 F 01/27/18 17:07 Pulse Rate 67 01/27/18 19:33 Respiratory Rate 14 01/27/18 19:33 Blood Pressure 149/85 01/27/18 19:33 O2 Sat by Pulse Oximetry 95 01/27/18 19:33 Oxygen Delivery Oxygen Delivery Room Air Chest Pain - Lab Data Result diagrams: 01/27/18 18:52 01/27/18 17:38 Lab Results 01/27/18 01/27/18 01/27/18 Range/Units 17:28 17:38 18:52 WBC 5.4 (4.3-11.1) K/mcL RBC 4.76 (4.19-5.50) M/mcL Hgb 15.0 (12.9-16.9) g/dL Hct 43.3 (37.5-50.1) % MCV 91.0 (83.0-100.0) fL MCH 31.5 (28.0-33.3) pg MCHC 34.6 (31.6-35.5) g/dL RDW 12.6 (11.5-14.5) % Plt Count 159 (140-400) K/mcL MPV 9.1 L (9.4-12.4) fL Immature Gran % 0.2 (0-4) % Seg Neutrophils % 60.7 % Lymphocytes % 25.8 % Monocytes % 10.4 % Eosinophils % 2.2 % Basophils % 0.7 % Neutrophils # 3.3 (1.6-8.9) K/mcL Lymphocytes # 1.4 (0.6-4.6) K/mcL Monocytes # 0.6 (0.0-1.3) K/mcL Eosinophils # 0.1 (0.0-0.6) K/mcL Basophils # 0.0 (0.0-0.2) K/mcL PT 10.6 (9.4-12.1) Seconds INR 0.9 APTT 31.9 (26.0-36.0) Seconds Sodium 135 L (136-145) mEq/L Potassium 4.3 (3.5-5.1) mEq/L Chloride 103 (98-107) mEq/L Carbon Dioxide 26 (23-29) mEq/L BUN 15 (8-23) mg/dL Creatinine 1.18 (0.70-1.30) mg/dL Est GFR ( Amer) > 60 (> 60) Est GFR (Non-Af Amer) 59 L (> 60) BUN/Creatinine Ratio 13 (6-26) Glucose 230 H (70-105) mg/dL Calculated Osmolality 288 (280-300) Calcium 9.1 (8.6-10.3) mg/dL Troponin I 0.03 (< 0.04) ng/mL Heart Score - Score History: Highly Suspicious EKG: Non Specific repolarisation Disturbance Age: Greater than 65 Risk Factors: Equal/Greater than 3 risk factor or history of atherosclerotic disease Troponin: Less than normal limit HEART Score Total: 7
[2018-01-27] MEDS ORDERED: Isovue-370 500 ML INFUS..BTL IV ONE (17:29)
[2018-01-27] MEDS: 0.9 % Sodium Chloride 500 ML IVC ONE ×2 (17:42→21:23)
[2018-01-27 18:07] LABS: INR 0.9; Prothrombin Time 10.6 Seconds (9.4-12.1)
[2018-01-27 18:09] LABS: Activated Partial Thrombo Time 31.9 Seconds (26.0-36.0)
--- NOTE | 2018-01-27 18:09 | Emergency Department Note ---
Disposition Clinical Impression: Elevated troponin, EKG abnormality Chest pain Qualifiers: Chest pain type: unspecified Qualified Code(s): R07.9 - Chest pain, unspecified Disposition: Admitted As Inpatient Condition: Fair General Adult HPI - General Chief complaint: ED Chest Pain Stated complaint: heart problems Time Seen by Provider: 01/27/18 17:15 Source: patient Limitations: no limitations - History of Present Illness Pain Scale: 4 - Related Data Home Medications Medication Instructions Recorded Confirmed Aspirin [Lo-Dose Aspirin EC] 81 mg PO DAILY 07/08/17 01/27/18 Finasteride [Proscar] 5 mg PO DAILY 07/08/17 01/27/18 Metoprolol [Lopressor] 25 mg PO BID 07/08/17 01/27/18 Nitroglycerin [Nitrostat] 0.4 mg SL Q5M PRN 07/08/17 01/27/18 [place]-3/Dha/Epa/Fish Oil [Fish Oil 1 cap PO DAILY 07/08/17 01/27/18 1,000 mg Softgel] Simvastatin [Zocor] 40 mg PO HS 07/08/17 01/27/18 Vitamin E Acetate [Vitamin E] 400 unit PO DAILY 07/08/17 01/27/18 metFORMIN [Glucophage] 500 mg PO BID 07/08/17 01/27/18 Previous Rx's Medication Instructions Recorded Clopidogrel [Plavix] 75 mg PO DAILY #30 tablet 07/09/17 Losartan [Cozaar] 75 mg PO DAILY #90 tablet 02/01/18 hydrALAZINE [HydrALAZINE] 50 mg PO Q8HR #180 tablet 02/01/18 Allergies Allergy/AdvReac Type Severity Reaction Status Date / Time No Known Allergies Allergy Verified 07/08/17 11:00 Past Medical History - Past Medical History Medical history: Reports: coronary artery disease, hypertension Psychiatric history: Reports: no psych history - Social History Smoking Status: Never smoker Smokeless Tobacco Status: No Alcohol use: Reports: none Drug use: Reports: none Physical Exam - General Limitations: no limitations General appearance: alert, in no apparent distress Course Vital Signs Temperature 98.2 F 01/27/18 17:07 Pulse Rate 67 01/27/18 17:07 Respiratory Rate 18 01/27/18 17:07 Blood Pressure 227/87 01/27/18 17:07 O2 Sat by Pulse Oximetry 97 01/27/18 17:07 Temperature 97.9 F 02/01/18 11:23 Pulse Rate 59 02/01/18 11:23 Respiratory Rate 18 02/01/18 11:23 Blood Pressure 153/77 02/01/18 11:23 O2 Sat by Pulse Oximetry 95 02/01/18 07:28 Oxygen Delivery Oxygen Delivery Nasal Cannula Medical Decision Making - Lab Data Result diagrams: 01/31/18 03:22 01/31/18 03:22 Lab Results 01/27/18 01/27/18 01/27/18 Range/Units 17:28 17:38 18:52 WBC 5.4 (4.3-11.1) K/mcL RBC 4.76 (4.19-5.50) M/mcL Hgb 15.0 (12.9-16.9) g/dL Hct 43.3 (37.5-50.1) % MCV 91.0 (83.0-100.0) fL MCH 31.5 (28.0-33.3) pg MCHC 34.6 (31.6-35.5) g/dL RDW 12.6 (11.5-14.5) % Plt Count 159 (140-400) K/mcL MPV 9.1 L (9.4-12.4) fL Immature Gran % 0.2 (0-4) % Seg Neutrophils % 60.7 % Lymphocytes % 25.8 % Monocytes % 10.4 % Eosinophils % 2.2 % Basophils % 0.7 % Neutrophils # 3.3 (1.6-8.9) K/mcL Lymphocytes # 1.4 (0.6-4.6) K/mcL Monocytes # 0.6 (0.0-1.3) K/mcL Eosinophils # 0.1 (0.0-0.6) K/mcL Basophils # 0.0 (0.0-0.2) K/mcL PT 10.6 (9.4-12.1) Seconds INR 0.9 APTT 31.9 (26.0-36.0) Seconds Sodium 135 L (136-145) mEq/L Potassium 4.3 (3.5-5.1) mEq/L Chloride 103 (98-107) mEq/L Carbon Dioxide 26 (23-29) mEq/L BUN 15 (8-23) mg/dL Creatinine 1.18 (0.70-1.30) mg/dL Est GFR ( Amer) > 60 (> 60) Est GFR (Non-Af Amer) 59 L (> 60) BUN/Creatinine Ratio 13 (6-26) Glucose 230 H (70-105) mg/dL POC Glucose (70-99) mg/dL Calculated Osmolality 288 (280-300) Calcium 9.1 (8.6-10.3) mg/dL Phosphorus (2.7-4.5) mg/dL Magnesium (1.6-2.6) mg/dL Total Bilirubin (0.3-1.0) mg/dL AST (13-39) Units/L ALT (7-52) Units/L Alkaline Phosphatase (34-104) Units/L Troponin I 0.03 (< 0.04) ng/mL B-Natriuretic Peptide (Less than 100) pg/mL Serum Total Protein (6.4-8.9) g/dL Albumin (3.5-5.7) g/dL Globulin (2.4-3.5) g/dL Albumin/Globulin Ratio (1.1-2.2) Triglycerides (< 150) mg/dL Cholesterol (< 200) mg/dL LDL Cholesterol, Calc (0-99) mg/dL VLDL Cholesterol, Calc (< 31) mg/dL HDL Cholesterol (40-59) mg/dL Cholesterol/HDL Ratio (0-4.9) Urine Color (Yellow) Urine Clarity (Clear) Urine pH (5.0-8.0) pH Units Ur Specific [place] (1.010-1.025) Urine Protein (Neg-Trace) mg/dL Urine Glucose (UA) (Normal) mg/dL Urine Ketones (Negative) mg/dL Urine Blood (Negative) Urine Nitrite (Negative) Urine Bilirubin (Negative) Urine Urobilinogen (Normal) mg/dL Ur Leukocyte Esterase (Negative) 01/27/18 01/27/18 01/27/18 Range/Units 19:23 19:56 21:10 WBC 5.8 (4.3-11.1) K/mcL RBC 4.76 (4.19-5.50) M/mcL Hgb 14.7 (12.9-16.9) g/dL Hct 41.8 (37.5-50.1) % MCV 87.8 (83.0-100.0) fL MCH 30.9 (28.0-33.3) pg MCHC 35.2 (31.6-35.5) g/dL RDW 12.7 (11.5-14.5) % Plt Count 153 (140-400) K/mcL MPV 8.9 L (9.4-12.4) fL Immature Gran % (0-4) % Seg Neutrophils % % Lymphocytes % % Monocytes % % Eosinophils % % Basophils % % Neutrophils # (1.6-8.9) K/mcL Lymphocytes # (0.6-4.6) K/mcL Monocytes # (0.0-1.3) K/mcL Eosinophils # (0.0-0.6) K/mcL Basophils # (0.0-0.2) K/mcL PT (9.4-12.1) Seconds INR APTT (26.0-36.0) Seconds Sodium (136-145) mEq/L Potassium (3.5-5.1) mEq/L Chloride (98-107) mEq/L Carbon Dioxide (23-29) mEq/L BUN (8-23) mg/dL Creatinine (0.70-1.30) mg/dL Est GFR ( Amer) (> 60) Est GFR (Non-Af Amer) (> 60) BUN/Creatinine Ratio (6-26) Glucose (70-105) mg/dL POC Glucose (70-99) mg/dL Calculated Osmolality (280-300) Calcium (8.6-10.3) mg/dL Phosphorus (2.7-4.5) mg/dL Magnesium (1.6-2.6) mg/dL Total Bilirubin (0.3-1.0) mg/dL AST (13-39) Units/L ALT (7-52) Units/L Alkaline Phosphatase (34-104) Units/L Troponin I 0.04 H* (< 0.04) ng/mL B-Natriuretic Peptide 216 H (Less than 100) pg/mL Serum Total Protein (6.4-8.9) g/dL Albumin (3.5-5.7) g/dL Globulin (2.4-3.5) g/dL Albumin/Globulin Ratio (1.1-2.2) Triglycerides (< 150) mg/dL Cholesterol (< 200) mg/dL LDL Cholesterol, Calc (0-99) mg/dL VLDL Cholesterol, Calc (< 31) mg/dL HDL Cholesterol (40-59) mg/dL Cholesterol/HDL Ratio (0-4.9) Urine Color (Yellow) Urine Clarity (Clear) Urine pH (5.0-8.0) pH Units Ur Specific [place] (1.010-1.025) Urine Protein (Neg-Trace) mg/dL Urine Glucose (UA) (Normal) mg/dL Urine Ketones (Negative) mg/dL Urine Blood (Negative) Urine Nitrite (Negative) Urine Bilirubin (Negative) Urine Urobilinogen (Normal) mg/dL Ur Leukocyte Esterase (Negative) 01/27/18 01/27/18 01/28/18 Range/Units 21:10 23:44 03:13 WBC (4.3-11.1) K/mcL RBC (4.19-5.50) M/mcL Hgb (12.9-16.9) g/dL Hct (37.5-50.1) % MCV (83.0-100.0) fL MCH (28.0-33.3) pg MCHC (31.6-35.5) g/dL RDW (11.5-14.5) % Plt Count (140-400) K/mcL MPV (9.4-12.4) fL Immature Gran % (0-4) % Seg Neutrophils % % Lymphocytes % % Monocytes % % Eosinophils % % Basophils % % Neutrophils # (1.6-8.9) K/mcL Lymphocytes # (0.6-4.6) K/mcL Monocytes # (0.0-1.3) K/mcL Eosinophils # (0.0-0.6) K/mcL Basophils # (0.0-0.2) K/mcL PT 10.6 11.5 (9.4-12.1) Seconds INR 0.9 1.0 APTT 31.5 100.6 H D (26.0-36.0) Seconds Sodium (136-145) mEq/L Potassium (3.5-5.1) mEq/L Chloride (98-107) mEq/L Carbon Dioxide (23-29) mEq/L BUN (8-23) mg/dL Creatinine (0.70-1.30) mg/dL Est GFR ( Amer) (> 60) Est GFR (Non-Af Amer) (> 60) BUN/Creatinine Ratio (6-26) Glucose (70-105) mg/dL POC Glucose 155 H (70-99) mg/dL Calculated Osmolality (280-300) Calcium (8.6-10.3) mg/dL Phosphorus (2.7-4.5) mg/dL Magnesium (1.6-2.6) mg/dL Total Bilirubin (0.3-1.0) mg/dL AST (13-39) Units/L ALT (7-52) Units/L Alkaline Phosphatase (34-104) Units/L Troponin I (< 0.04) ng/mL B-Natriuretic Peptide (Less than 100) pg/mL Serum Total Protein (6.4-8.9) g/dL Albumin (3.5-5.7) g/dL Globulin (2.4-3.5) g/dL Albumin/Globulin Ratio (1.1-2.2) Triglycerides (< 150) mg/dL Cholesterol (< 200) mg/dL LDL Cholesterol, Calc (0-99) mg/dL VLDL Cholesterol, Calc (< 31) mg/dL HDL Cholesterol (40-59) mg/dL Cholesterol/HDL Ratio (0-4.9) Urine Color (Yellow) Urine Clarity (Clear) Urine pH (5.0-8.0) pH Units Ur Specific [place] (1.010-1.025) Urine Protein (Neg-Trace) mg/dL Urine Glucose (UA) (Normal) mg/dL Urine Ketones (Negative) mg/dL Urine Blood (Negative) Urine Nitrite (Negative) Urine Bilirubin (Negative) Urine Urobilinogen (Normal) mg/dL Ur Leukocyte Esterase (Negative) 01/28/18 01/28/18 01/28/18 Range/Units 03:13 03:13 03:13 WBC 7.3 (4.3-11.1) K/mcL RBC 4.38 (4.19-5.50) M/mcL Hgb 13.8 (12.9-16.9) g/dL Hct 39.4 (37.5-50.1) % MCV 90.0 (83.0-100.0) fL MCH 31.5 (28.0-33.3) pg MCHC 35.0 (31.6-35.5) g/dL RDW 12.5 (11.5-14.5) % Plt Count 150 (140-400) K/mcL MPV 9.3 L (9.4-12.4) fL Immature Gran % 0.3 (0-4) % Seg Neutrophils % 66.6 % Lymphocytes % 22.6 % Monocytes % 8.7 % Eosinophils % 1.4 % Basophils % 0.4 % Neutrophils # 4.9 (1.6-8.9) K/mcL Lymphocytes # 1.6 (0.6-4.6) K/mcL Monocytes # 0.6 (0.0-1.3) K/mcL Eosinophils # 0.1 (0.0-0.6) K/mcL Basophils # 0.0 (0.0-0.2) K/mcL PT (9.4-12.1) Seconds INR APTT (26.0-36.0) Seconds Sodium 135 L (136-145) mEq/L Potassium 3.8 (3.5-5.1) mEq/L Chloride 105 (98-107) mEq/L Carbon Dioxide 23 (23-29) mEq/L BUN 12 (8-23) mg/dL Creatinine 0.98 (0.70-1.30) mg/dL Est GFR ( Amer) > 60 (> 60) Est GFR (Non-Af Amer) > 60 (> 60) BUN/Creatinine Ratio 12 (6-26) Glucose 149 H (70-105) mg/dL POC Glucose (70-99) mg/dL Calculated Osmolality 283 (280-300) Calcium 8.3 L (8.6-10.3) mg/dL Phosphorus 3.0 (2.7-4.5) mg/dL Magnesium 1.9 (1.6-2.6) mg/dL Total Bilirubin 0.6 (0.3-1.0) mg/dL AST 11 L (13-39) Units/L ALT 10 (7-52) Units/L Alkaline Phosphatase 43 (34-104) Units/L Troponin I 0.04 H* (< 0.04) ng/mL B-Natriuretic Peptide 213 H (Less than 100) pg/mL Serum Total Protein 5.7 L (6.4-8.9) g/dL Albumin 3.5 (3.5-5.7) g/dL Globulin 2.2 L (2.4-3.5) g/dL Albumin/Globulin Ratio 1.6 (1.1-2.2) Triglycerides 86 (< 150) mg/dL Cholesterol 113 (< 200) mg/dL LDL Cholesterol, Calc 55 (0-99) mg/dL VLDL Cholesterol, Calc 17 (< 31) mg/dL HDL Cholesterol 41 (40-59) mg/dL Cholesterol/HDL Ratio 2.8 (0-4.9) Urine Color (Yellow) Urine Clarity (Clear) Urine pH (5.0-8.0) pH Units Ur Specific [place] (1.010-1.025) Urine Protein (Neg-Trace) mg/dL Urine Glucose (UA) (Normal) mg/dL Urine Ketones (Negative) mg/dL Urine Blood (Negative) Urine Nitrite (Negative) Urine Bilirubin (Negative) Urine Urobilinogen (Normal) mg/dL Ur Leukocyte Esterase (Negative) 01/28/18 01/28/18 Range/Units 03:30 07:19 WBC (4.3-11.1) K/mcL RBC (4.19-5.50) M/mcL Hgb (12.9-16.9) g/dL Hct (37.5-50.1) % MCV (83.0-100.0) fL MCH (28.0-33.3) pg MCHC (31.6-35.5) g/dL RDW (11.5-14.5) % Plt Count (140-400) K/mcL MPV (9.4-12.4) fL Immature Gran % (0-4) % Seg Neutrophils % % Lymphocytes % % Monocytes % % Eosinophils % % Basophils % % Neutrophils # (1.6-8.9) K/mcL Lymphocytes # (0.6-4.6) K/mcL Monocytes # (0.0-1.3) K/mcL Eosinophils # (0.0-0.6) K/mcL Basophils # (0.0-0.2) K/mcL PT (9.4-12.1) Seconds INR APTT (26.0-36.0) Seconds Sodium (136-145) mEq/L Potassium (3.5-5.1) mEq/L Chloride (98-107) mEq/L Carbon Dioxide (23-29) mEq/L BUN (8-23) mg/dL Creatinine (0.70-1.30) mg/dL Est GFR ( Amer) (> 60) Est GFR (Non-Af Amer) (> 60) BUN/Creatinine Ratio (6-26) Glucose (70-105) mg/dL POC Glucose 134 H (70-99) mg/dL Calculated Osmolality (280-300) Calcium (8.6-10.3) mg/dL Phosphorus (2.7-4.5) mg/dL Magnesium (1.6-2.6) mg/dL Total Bilirubin (0.3-1.0) mg/dL AST (13-39) Units/L ALT (7-52) Units/L Alkaline Phosphatase (34-104) Units/L Troponin I (< 0.04) ng/mL B-Natriuretic Peptide (Less than 100) pg/mL Serum Total Protein (6.4-8.9) g/dL Albumin (3.5-5.7) g/dL Globulin (2.4-3.5) g/dL Albumin/Globulin Ratio (1.1-2.2) Triglycerides (< 150) mg/dL Cholesterol (< 200) mg/dL LDL Cholesterol, Calc (0-99) mg/dL VLDL Cholesterol, Calc (< 31) mg/dL HDL Cholesterol (40-59) mg/dL Cholesterol/HDL Ratio (0-4.9) Urine Color Yellow (Yellow) Urine Clarity Clear (Clear) Urine pH 6.0 (5.0-8.0) pH Units Ur Specific [place] 1.022 (1.010-1.025) Urine Protein Negative (Neg-Trace) mg/dL Urine Glucose (UA) 100 H (Normal) mg/dL Urine Ketones Negative (Negative) mg/dL Urine Blood Negative (Negative) Urine Nitrite Negative (Negative) Urine Bilirubin Negative (Negative) Urine Urobilinogen Normal (Normal) mg/dL Ur Leukocyte Esterase Negative (Negative) Attestation Statement - Attestation Attestation: I examined this patient and my medical decision-making was reviewed with the MATERIAL CONTROL ANALYST/PA/Advanced Practice Nurse/Resident Physician. I agree with the documented findings, disposition and treatment plan as described except to the extent set forth below. Patient presents with chest pain which is relieved with nitroglycerin and has been intermittent for the last several days with radiation to shoulders. He does have an EKG with concerning anterolateral ischemic changes but are new compared to previous EKG showing normal sinus rhythm with a rate of 61. The patient will have a second EKG as well as well as labs including troponin and be admitted to the hospital. CT to look for dissection. [id number]
[2018-01-27 18:15] LABS: BUN/Creatinine Ratio 13 (6-26); Blood Urea Nitrogen 15 mg/dL (8-23); Calcium 9.1 mg/dL (8.6-10.3); Carbon Dioxide 26 mEq/L (23-29); Chloride 103 mEq/L (98-107); Glucose 230 mg/dL (70-105); Osmolality,Calculated 288 (280-300); Potassium 4.3 mEq/L (3.5-5.1); Sodium 135 mEq/L (136-145); eGFR For African Americans > 60 (> 60); eGFR For Non-African Americans 59 (> 60)
[2018-01-27 18:16] LABS: Troponin I 0.03 ng/mL (< 0.04)
[2018-01-27] MEDS ORDERED: Nitroglycerin 25 MG/250 ML INFUS..BTL IVC SCH (19:00)
[2018-01-27 19:24] LABS: Basophils % 0.7 %; Eosinophils # 0.1 K/mcL (0.0-0.6); Eosinophils % 2.2 %; Hematocrit 43.3 % (37.5-50.1); Immature Granulocytes % 0.2 % (0-4); Lymphocytes # 1.4 K/mcL (0.6-4.6); Lymphocytes % 25.8 %; Mean Corpuscular HGB Conc 34.6 g/dL (31.6-35.5); Mean Corpuscular Hemoglobin 31.5 pg (28.0-33.3); Mean Platelet Volume 9.1 fL (9.4-12.4); Monocytes # 0.6 K/mcL (0.0-1.3); Monocytes % 10.4 %; Neutrophils # 3.3 K/mcL (1.6-8.9); Platelet Count 159 K/mcL (140-400); Red Blood Count 4.76 M/mcL (4.19-5.50); Red Cell Distribution Width 12.6 % (11.5-14.5); Segmented Neutrophils % 60.7 %
[2018-01-27] MEDS ORDERED: 0.9 % Sodium Chloride 500 ML ONE (19:24)
[2018-01-27] MEDS ORDERED: Aspirin 325 MG TABLET PO ONE (20:51)
[2018-01-27] MEDS ORDERED: *HR* Heparin 5,000 UNIT/ML VIAL IVP PRN (20:51)
[2018-01-27] MEDS ORDERED: *HR* Heparin 5,000 UNIT/ML VIAL IVP ONE (20:51)
--- NOTE | 2018-01-27 21:11 | Emergency Department Note ---
Disposition Clinical Impression: Elevated troponin, EKG abnormality Chest pain Qualifiers: Chest pain type: unspecified Qualified Code(s): R07.9 - Chest pain, unspecified Disposition: Admitted As Inpatient Condition: Fair Time of Disposition: 21:10 General Adult HPI - General Chief complaint: ED Chest Pain Stated complaint: heart problems Time Seen by Provider: 01/27/18 17:15 Source: patient Mode of arrival: ambulatory Limitations: no limitations Nursing Notes Reviewed: Yes Vital Signs Reviewed: Yes - History of Present Illness Pain Scale: 4 - Related Data Home Medications Medication Instructions Recorded Confirmed Aspirin [Lo-Dose Aspirin EC] 81 mg PO DAILY 07/08/17 01/27/18 Finasteride [Proscar] 5 mg PO DAILY 07/08/17 01/27/18 Losartan [Cozaar] 25 mg PO DAILY 07/08/17 01/27/18 Metoprolol [Lopressor] 25 mg PO BID 07/08/17 01/27/18 Nitroglycerin [Nitrostat] 0.4 mg SL Q5M PRN 07/08/17 01/27/18 [place]-3/Dha/Epa/Fish Oil [Fish Oil 1 cap PO DAILY 07/08/17 01/27/18 1,000 mg Softgel] Simvastatin [Zocor] 40 mg PO HS 07/08/17 01/27/18 Vitamin E Acetate [Vitamin E] 400 unit PO DAILY 07/08/17 01/27/18 metFORMIN [Glucophage] 500 mg PO BID 07/08/17 01/27/18 Previous Rx's Medication Instructions Recorded Clopidogrel [Plavix] 75 mg PO DAILY #30 tablet 07/09/17 Allergies Allergy/AdvReac Type Severity Reaction Status Date / Time No Known Allergies Allergy Verified 07/08/17 11:00 Past Medical History - Past Medical History Medical history: Reports: coronary artery disease, hypertension Psychiatric history: Reports: no psych history - Social History Smoking Status: Never smoker Smokeless Tobacco Status: No Alcohol use: Reports: none Drug use: Reports: none Physical Exam - General Limitations: no limitations General appearance: alert, in no apparent distress Course Course Narrative: Patient received in sign out as unstable angina. Patient had pending CTs of his chest and abdomen. Those are returned and are negative. Patient continued to have chest pain on a nitroglycerin drip. A troponin was checked and it was elevated at 0.04. Repeat EKG done at 20:31 shows sinus rhythm with a first- degree block. It also shows nonspecific ST-T wave changes in the leads V2 through V5 as well as T-wave inversions in the inferior leads. This is consistent with old EKG and unchanged. The patient still has chest pain and his troponin is elevated he will be started on low-dose ACS heparin. He is given a full dose of aspirin. I discussed the patient's case and EKG findings with Dr. Braun the certified optician on-call and he agrees with the current plan. He will be admitted to the hospital. Vital Signs Temperature 98.2 F 01/27/18 17:07 Pulse Rate 67 01/27/18 17:07 Respiratory Rate 18 01/27/18 17:07 Blood Pressure 227/87 01/27/18 17:07 O2 Sat by Pulse Oximetry 97 01/27/18 17:07 Temperature 97.5 F L 01/28/18 03:53 Pulse Rate 57 01/28/18 03:53 Respiratory Rate 18 01/28/18 03:53 Blood Pressure 140/66 01/28/18 03:53 O2 Sat by Pulse Oximetry 97 01/28/18 03:53 Oxygen Delivery Oxygen Delivery Nasal Cannula Medical Decision Making - Medical Records Medical records reviewed: Yes I reviewed the patient's medical records. - Lab Data Lab results reviewed: Yes I reviewed the patient's lab results. Result diagrams: 01/28/18 03:13 01/28/18 03:13 Lab Results 01/27/18 01/27/18 01/27/18 Range/Units 17:28 17:38 18:52 WBC 5.4 (4.3-11.1) K/mcL RBC 4.76 (4.19-5.50) M/mcL Hgb 15.0 (12.9-16.9) g/dL Hct 43.3 (37.5-50.1) % MCV 91.0 (83.0-100.0) fL MCH 31.5 (28.0-33.3) pg MCHC 34.6 (31.6-35.5) g/dL RDW 12.6 (11.5-14.5) % Plt Count 159 (140-400) K/mcL MPV 9.1 L (9.4-12.4) fL Immature Gran % 0.2 (0-4) % Seg Neutrophils % 60.7 % Lymphocytes % 25.8 % Monocytes % 10.4 % Eosinophils % 2.2 % Basophils % 0.7 % Neutrophils # 3.3 (1.6-8.9) K/mcL Lymphocytes # 1.4 (0.6-4.6) K/mcL Monocytes # 0.6 (0.0-1.3) K/mcL Eosinophils # 0.1 (0.0-0.6) K/mcL Basophils # 0.0 (0.0-0.2) K/mcL PT 10.6 (9.4-12.1) Seconds INR 0.9 APTT 31.9 (26.0-36.0) Seconds Sodium 135 L (136-145) mEq/L Potassium 4.3 (3.5-5.1) mEq/L Chloride 103 (98-107) mEq/L Carbon Dioxide 26 (23-29) mEq/L BUN 15 (8-23) mg/dL Creatinine 1.18 (0.70-1.30) mg/dL Est GFR ( Amer) > 60 (> 60) Est GFR (Non-Af Amer) 59 L (> 60) BUN/Creatinine Ratio 13 (6-26) Glucose 230 H (70-105) mg/dL Calculated Osmolality 288 (280-300) Calcium 9.1 (8.6-10.3) mg/dL Troponin I 0.03 (< 0.04) ng/mL B-Natriuretic Peptide (Less than 100) pg/mL 01/27/18 01/27/18 01/27/18 Range/Units 19:23 19:56 21:10 WBC 5.8 (4.3-11.1) K/mcL RBC 4.76 (4.19-5.50) M/mcL Hgb 14.7 (12.9-16.9) g/dL Hct 41.8 (37.5-50.1) % MCV 87.8 (83.0-100.0) fL MCH 30.9 (28.0-33.3) pg MCHC 35.2 (31.6-35.5) g/dL RDW 12.7 (11.5-14.5) % Plt Count 153 (140-400) K/mcL MPV 8.9 L (9.4-12.4) fL Immature Gran % (0-4) % Seg Neutrophils % % Lymphocytes % % Monocytes % % Eosinophils % % Basophils % % Neutrophils # (1.6-8.9) K/mcL Lymphocytes # (0.6-4.6) K/mcL Monocytes # (0.0-1.3) K/mcL Eosinophils # (0.0-0.6) K/mcL Basophils # (0.0-0.2) K/mcL PT (9.4-12.1) Seconds INR APTT (26.0-36.0) Seconds Sodium (136-145) mEq/L Potassium (3.5-5.1) mEq/L Chloride (98-107) mEq/L Carbon Dioxide (23-29) mEq/L BUN (8-23) mg/dL Creatinine (0.70-1.30) mg/dL Est GFR ( Amer) (> 60) Est GFR (Non-Af Amer) (> 60) BUN/Creatinine Ratio (6-26) Glucose (70-105) mg/dL Calculated Osmolality (280-300) Calcium (8.6-10.3) mg/dL Troponin I 0.04 H* (< 0.04) ng/mL B-Natriuretic Peptide 216 H (Less than 100) pg/mL 01/27/18 Range/Units 21:10 WBC (4.3-11.1) K/mcL RBC (4.19-5.50) M/mcL Hgb (12.9-16.9) g/dL Hct (37.5-50.1) % MCV (83.0-100.0) fL MCH (28.0-33.3) pg MCHC (31.6-35.5) g/dL RDW (11.5-14.5) % Plt Count (140-400) K/mcL MPV (9.4-12.4) fL Immature Gran % (0-4) % Seg Neutrophils % % Lymphocytes % % Monocytes % % Eosinophils % % Basophils % % Neutrophils # (1.6-8.9) K/mcL Lymphocytes # (0.6-4.6) K/mcL Monocytes # (0.0-1.3) K/mcL Eosinophils # (0.0-0.6) K/mcL Basophils # (0.0-0.2) K/mcL PT 10.6 (9.4-12.1) Seconds INR 0.9 APTT 31.5 (26.0-36.0) Seconds Sodium (136-145) mEq/L Potassium (3.5-5.1) mEq/L Chloride (98-107) mEq/L Carbon Dioxide (23-29) mEq/L BUN (8-23) mg/dL Creatinine (0.70-1.30) mg/dL Est GFR ( Amer) (> 60) Est GFR (Non-Af Amer) (> 60) BUN/Creatinine Ratio (6-26) Glucose (70-105) mg/dL Calculated Osmolality (280-300) Calcium (8.6-10.3) mg/dL Troponin I (< 0.04) ng/mL B-Natriuretic Peptide (Less than 100) pg/mL - Radiology Data Radiology results reviewed: Yes I reviewed the patient's radiology results. Chest X-Ray 01/27/18 17:28 IMPRESSION: No radiographic evidence of acute cardiopulmonary disease. Sequela from old granulomatous disease. D/ / Andres Cherry / Andres Cherry Interpreting Provider: Andres Cherry Abdomen/Pelvis CTA 01/27/18 17:29 IMPRESSION: 1. Normal CTA of the aorta with no dissection or aneurysm. 2. No other acute findings in the chest, abdomen or pelvis. 3. Incidental thyroid nodules measuring up to 3.3 cm on the left. Outpatient follow-up thyroid ultrasound is recommended. D/ / Carlyle Lopez MD / Carlyle Lopez MD Interpreting Provider: Carlyle Lopez MD Chest CTA 01/27/18 17:29 IMPRESSION: 1. Normal CTA of the aorta with no dissection or aneurysm. 2. No other acute findings in the chest, abdomen or pelvis. 3. Incidental thyroid nodules measuring up to 3.3 cm on the left. Outpatient follow-up thyroid ultrasound is recommended. D/ / Carlyle Lopez MD / Carlyle Lopez MD Interpreting Provider: Carlyle Lopez MD - EKG Data EKG #1 EKG attestation: Yes I reviewed and interpreted this EKG. EKG results narrative: EKG done at 20:31 shows sinus rhythm with first-degree AV block at a rate of 66 bpm. Normal axis. Patient has nonspecific ST wave abnormalities in the precordial leads as well as T-wave inversions in the inferior leads. This is unchanged from the EKG that was done at 18:14. S.B.A.R. - S.B.A.RRogelio Transition of Care: 19:00 Situation: Demographics, MOA Background: Presenting Complaint, Relevant PMH, Meds, & Allergies Assessment: Vital Signs, Course and respsone to treatment, Exam Concerns, Patient/Family Expectation, Pertinant Lab Results, Outstanding Labs Recommendation: Barrier(s) to disposition, Recommendation based on pending studies, treatments, or consults S.B.A.RRogelio Report Given to: Dr. Olivas and Dr. Hale SShital Repor Time: 19:00 Attestation Statement - Attestation Attestation: I examined this patient and my medical decision-making was reviewed with the Resident Physician. I agree with the documented findings, disposition and treatment plan as described except to the extent set forth below. I received this patient in signout. Cardiac biomarkers were repeated and were elevated. I do suspect N STEMI. CT scan of the chest shows no acute findings. Heparinization was initiated, nitroglycerin has been continued and the patient now has no chest pain. EKG was repeated and there are no changes from the previous EKG. We did discuss the case with the on-call interventional S and they recommend admission and medical management for an NSTEMI
[2018-01-27] MEDS: Heparin 25,000 UNIT/500 ML D5W 25,000 UNIT/500 ML BAG IVC SCH (21:20)
[2018-01-27 21:23] LABS: Hematocrit 41.8 % (37.5-50.1); Hemoglobin 14.7 g/dL (12.9-16.9); Mean Corpuscular HGB Conc 35.2 g/dL (31.6-35.5); Mean Corpuscular Hemoglobin 30.9 pg (28.0-33.3); Mean Corpuscular Volume 87.8 fL (83.0-100.0); Mean Platelet Volume 8.9 fL (9.4-12.4); Platelet Count 153 K/mcL (140-400); Red Blood Count 4.76 M/mcL (4.19-5.50); Red Cell Distribution Width 12.7 % (11.5-14.5)
[2018-01-27 21:32] LABS: INR 0.9; Prothrombin Time 10.6 Seconds (9.4-12.1)
[2018-01-27 21:35] LABS: Activated Partial Thrombo Time 31.5 Seconds (26.0-36.0)
[2018-01-27] MEDS ORDERED: Nitroglycerin 0.4 MG TAB.SUBL SL PRN (23:40)
--- NOTE | 2018-01-27 23:40 | Internal Med History&Physical ---
Date of Encounter: 01/28/18 Time of Encounter: 09:00 Internal Medicine - H&P: HPI Chief complaint: cp History of present illness: Mr. Haney is a 82 year old male presents from home for evaluation of intermittent Chest pain for the past 4 days. the pain is dull heavy ache across his chest radiating town both arms as well as to his back. No associated nausea, vomiting, dyspena, diaphoresis, or abdominal pain. He stated that his chest pain was resolved completely alleviated with nitroglycerin sublingual however he noted that lately he become less responsive to nitroglycerin sublingual. The patient CAT scan of the chest and abdomen was was no significant abnormalities, he was started on nitroglycerin drip. His troponin was elevated at 0.04 EKG shows sinus rhythm with a first-degree block, nonspecific ST-T wave changes in the leads V2 through V5 as well as T-wave inversions in the inferior leads. This is consistent with old EKG and unchanged. The patient still has chest pain and his troponin is elevated he will be started on low-dose ACS heparin. Her surgery was consulted and they recommended to admit the patient for further evaluation and management. Past Med Surg Social Fam HX - Past Medical History Medical history: coronary artery disease, hypertension Psychiatric history: no psych history - Past Surgical History Additional surgical history: stents placed 2005,1999 - Social History Smoking Status: Never smoker Smokeless Tobacco Status: No Alcohol use: none Drug use: none - Family History Mother Hx Family Cancer: Yes (colon) Father Hx Family Cardiac Disorders: Yes Hx Family Endocrine Disorder: Yes Internal Medicine - H&P: Meds Aspirin [Lo-Dose Aspirin EC] 81 mg PO DAILY 07/08/17 [History] Finasteride [Proscar] 5 mg PO DAILY 07/08/17 [History] Losartan [Cozaar] 25 mg PO DAILY 07/08/17 [History] Metoprolol [Lopressor] 25 mg PO BID 07/08/17 [History] Nitroglycerin [Nitrostat] 0.4 mg SL Q5M PRN 07/08/17 [History] [place]-3/Dha/Epa/Fish Oil [Fish Oil 1,000 mg Softgel] 1 cap PO DAILY 07/08/17 [ History] Simvastatin [Zocor] 40 mg PO HS 07/08/17 [History] Vitamin E Acetate [Vitamin E] 400 unit PO DAILY 07/08/17 [History] metFORMIN [Glucophage] 500 mg PO BID 07/08/17 [History] Clopidogrel [Plavix] 75 mg PO DAILY #30 tablet 07/09/17 [Rx] 3 Allergy/AdvReac Type Severity Reaction Status Date / Time No Known Allergies Allergy Verified 07/08/17 11:00 All Systems PM: A 10-system review of systems was performed and is negative for pertinent findings except as documented above in the HPI. - Constitutional Constitutional: no chills, no fever(s), no night sweats - Cardiovascular Cardiovascular ROS IM: chest pain, no diaphoresis, no dyspnea, no lightheadedness, no palpitations, no syncope - Gastrointestinal Gastrointestinal: no abdominal pain, no diarrhea, no hematemesis, no hematochezia, no melena, no nausea, no vomiting - Neurological Neurological ROS: no confusion, no convulsions, no focal weakness, no numbness, no tingling, no tremor(s) - Constitutional Vitals: Temp Pulse Resp BP Pulse Ox 98.2 F 68 18 144/75 96 01/27/18 17:07 01/27/18 21:45 01/27/18 23:10 01/27/18 23:10 01/27/18 21:45 General appearance: Present: A&O X 3 - Head Head exam: Present: atraumatic, normocephalic - Neck Neck exam general surgery: Present: supple, trachea midline. Absent: lymphadenopathy - Respiratory Respiratory exam: Present: CTAB. Absent: accessory muscle use, rales, rhonchi, wheezes - Cardiovascular Cardiovascular exam: Present: RRR, +S1, +S2. Absent: diastolic murmur, gallop, rubs, systolic murmur - GI/Abdominal GI/Abdominal exam: Present: normal bowel sounds, soft, no peritoneal signs. Absent: distended, tenderness - Extremities Exam Extremities exam: Present: warm, radial pulses palpable and symmetrical. Absent : calf tenderness, cyanotic, pedal edema Internal Med - H&P Results - Labs CBC & Chem 7: 01/28/18 03:13 01/28/18 03:13 - Assessment and plan (1) NSTEMI (non-ST elevated myocardial infarction) Current Visit: No Status: Acute Assessment and plan: ASSESSMENT: - Chest pain DD *CAD *Muskuloskeletal CP - myofascial strain, costochondritis *GERD *Esophageal spasm *Pneumonia - no infiltrate on CXR PLAN: - cardiac enzymes x 2 q 8 hr - EKG now and in AM - ASA - O2 by NC to keep SpO2 greater than 92% - UA - CBCD, BMP in AM - Fasting lipids - Tylenol 650 mg PO q 4-6 hr PRN headache - Home meds (check list) - Heparin 5000 U SQ BID - 2D Echo - Cardiology consult (2) BPH (benign prostatic hyperplasia) Current Visit: No Status: Acute Qualifiers: Lower urinary tract symptom detail: unspecified (3) CAD (coronary artery disease) Current Visit: No Status: Acute Qualifiers: Coronary Disease-Associated Artery/Lesion type: circle artery [place] vs. transplanted heart: circle heart Associated angina: without angina Qualified Code(s): I25.10 - Atherosclerotic heart disease of circle coronary artery without angina pectoris (4) Diabetes Current Visit: No Status: Acute Qualifiers: Diabetes mellitus type: type 2 Diabetes mellitus complication status: without complication (5) HLD (hyperlipidemia) Current Visit: No Status: Acute Qualifiers: Hyperlipidemia type: unspecified Qualified Code(s): E78.5 - Hyperlipidemia , unspecified (6) HTN (hypertension) Current Visit: No Status: Acute Qualifiers: Hypertension type: essential hypertension Qualified Code(s): I10 - Essential (primary) hypertension - Time Spent With Patient Total time spent is greater than 50% in coordination of care (as documented) at patient's floor/unit and/or counseling patient:
[2018-01-28] MEDS ORDERED: Naloxone 0.4 MG/ML INJ IVP PRN (01:47)
[2018-01-28 03:52] LABS: Bilirubin,Urine Negative (Negative); Blood,Urine Negative (Negative); Clarity,Urine Clear (Clear); Color,Urine Yellow (Yellow); Glucose,Urine (UA) 100 mg/dL (Normal); Ketones,Urine Negative (Negative); Leukocyte Esterase,Urine Negative (Negative); Nitrite,Urine Negative (Negative); Protein,Urine Negative (Neg-Trace); Specific Gravity,Urine 1.022 (1.010-1.025); Urobilinogen,Urine Normal (Normal)
[2018-01-28 04:00] LABS: Basophils % 0.4 %; Eosinophils # 0.1 K/mcL (0.0-0.6); Eosinophils % 1.4 %; Hematocrit 39.4 % (37.5-50.1); Hemoglobin 13.8 g/dL (12.9-16.9); Immature Granulocytes % 0.3 % (0-4); Lymphocytes # 1.6 K/mcL (0.6-4.6); Lymphocytes % 22.6 %; Mean Corpuscular Hemoglobin 31.5 pg (28.0-33.3); Mean Platelet Volume 9.3 fL (9.4-12.4); Monocytes # 0.6 K/mcL (0.0-1.3); Monocytes % 8.7 %; Neutrophils # 4.9 K/mcL (1.6-8.9); Platelet Count 150 K/mcL (140-400); Red Blood Count 4.38 M/mcL (4.19-5.50); Red Cell Distribution Width 12.5 % (11.5-14.5); Segmented Neutrophils % 66.6 %
[2018-01-28 04:07] LABS: Prothrombin Time 11.5 Seconds (9.4-12.1)
[2018-01-28 04:10] LABS: Activated Partial Thrombo Time 100.6 Seconds (26.0-36.0)
[2018-01-28 04:25] LABS: Alanine Aminotransferase 10 Units/L (7-52); Albumin 3.5 g/dL (3.5-5.7); Albumin/Globulin Ratio 1.6 (1.1-2.2); Alkaline Phosphatase 43 Units/L (34-104); Aspartate Amino Transferase 11 Units/L (13-39); BUN/Creatinine Ratio 12 (6-26); Bilirubin,Total 0.6 mg/dL (0.3-1.0); Blood Urea Nitrogen 12 mg/dL (8-23); Calcium 8.3 mg/dL (8.6-10.3); Carbon Dioxide 23 mEq/L (23-29); Chloride 105 mEq/L (98-107); Chol/HDL Ratio 2.8 (0-4.9); Cholesterol 113 mg/dL (< 200); Globulin 2.2 g/dL (2.4-3.5); Glucose 149 mg/dL (70-105); HDL Cholesterol 41 mg/dL (40-59); LDL Cholesterol,Calculated 55 mg/dL (0-99); Magnesium 1.9 mg/dL (1.6-2.6); Osmolality,Calculated 283 (280-300); Potassium 3.8 mEq/L (3.5-5.1); Sodium 135 mEq/L (136-145); Total Protein 5.7 g/dL (6.4-8.9); Triglycerides 86 mg/dL (< 150); eGFR For African Americans > 60 (> 60); eGFR For Non-African Americans > 60 (> 60)
[2018-01-28 05:36] LABS: Troponin I 0.04 ng/mL (< 0.04)
[2018-01-28] MEDS ORDERED: *HR* Metformin 500 MG TABLET PO SCH (08:00)
--- NOTE | 2018-01-28 09:50 | Cardiology Consult Note ---
<Obinna Khanna - Last Filed: 01/28/18 09:51> Date of Encounter: 01/28/18 Time of Encounter: 09:45 Assessment and Plan (1) Unstable angina Current Visit: No Status: Acute C/o typical chest pain symptoms. Mild troponin in the setting of HTN urgency. EKG with changes concerning for ischemia. TTE completed today and shows LVEF 55-60%. Normal LV chamber size and function. Mild asymmetric hypertrophy of the basal septum. Mild left ventricular diastolic dysfunction. Normal right ventricular structure and function. Mild aortic regurgitation. Borderline mild pulmonary hypertension. Chest pain and symptoms concerning for unstable angina with known CAD. Continue heparin gtt. Asa, statin, plavix and bb. Recommend better blood pressure control. Will consider LHC during hospital stay. (2) CAD (coronary artery disease) Current Visit: No Status: Acute Prior cardiac testing: TTE 10/02/2012: LVEF 40%. Mildly dilated LV. Mild global and segmental systolic dysfunction. Normal LV diastolic function. Normal RV size and function. Moderate left atrial enlargement. Sclerotic trileaflet aortic valve with moderate central aortic regurgitation. Mild pulmonary hypertension, estimated RVSP 40 mmHg. TTE 07/09/2017: LVEF 50-55%. Mild diastolic dysfunction. Mildly dilated left ventricle. Mild to moderate AR. No pHTN. LHC 07/08/2017: LM 15% stenosis. LAD proximal 99% stenosis (MEENU x1 placed) and mid 80% stenosis (MEENU x1 placed). Circumflex proximal 30% stenosis. OM1 95% stenosis (MEENU x1 placed), prior OM1 stent patent. RCA proximal 30%, mid 25% ISR , and distal 30% stenosis. Continue asa, statin, bb, and plavix. Qualifiers: Coronary Disease-Associated Artery/Lesion type: [place] artery [place] vs. transplanted heart: [place] heart Associated angina: without angina Qualified Code(s): I25.10 - Atherosclerotic heart disease of [place] coronary artery without angina pectoris (3) HTN (hypertension) Current Visit: No Status: Acute HTN urgency on admission. Increase cozaar. B/p improved. Qualifiers: Hypertension type: essential hypertension Qualified Code(s): I10 - Essential (primary) hypertension Discussion w patient/family: The assessment and plan as outlined above was discussed with the patient and/or family members who expressed understanding and agreement. All questions were answered. Thank you for involving us in the care of your patient. Please call with any questions. History of Present Illness Consult date: 01/28/18 Requesting physician: Linda Spaulding Consult reason: Chest pain Chief complaint: Chest and back pain. History of present illness: Mr. Haney is a 82 year old male with past medical history of CAD s/p HI and multiple PCI, HTN who presents with the c/o pain in his bilateral shoulders, chest, and back that occurred at rest. Symptoms started 4 days ago and are not like pain he experienced with his previous stents. His pain improved with SL NTG. He is currently pain free. Cardiology consulted for elevated troponin up to 0.04. EKG showed SR with ST and T wave changes concerning for ischemia in the inferior and anteriolateral leads. He was noted to have b/p elevation in the 227/87 on admission. Past Med Surg Social Fam HX - Past Medical History Attestation: Yes The following information was validated with the patient. Medical history: coronary artery disease, hypertension Psychiatric history: no psych history - Past Surgical History Additional surgical history: stents placed - Social History Smoking Status: Never smoker Smokeless Tobacco Status: No Alcohol use: none Drug use: none - Family History Mother Hx Family Cancer: Yes (colon) Father Hx Family Cardiac Disorders: Yes Hx Family Endocrine Disorder: Yes Medications and Allergies Aspirin [Lo-Dose Aspirin EC] 81 mg PO DAILY 07/08/17 [History] Finasteride [Proscar] 5 mg PO DAILY 07/08/17 [History] Losartan [Cozaar] 25 mg PO DAILY 07/08/17 [History] Metoprolol [Lopressor] 25 mg PO BID 07/08/17 [History] Nitroglycerin [Nitrostat] 0.4 mg SL Q5M PRN 07/08/17 [History] [place]-3/Dha/Epa/Fish Oil [Fish Oil 1,000 mg Softgel] 1 cap PO DAILY 07/08/17 [ History] Simvastatin [Zocor] 40 mg PO HS 07/08/17 [History] Vitamin E Acetate [Vitamin E] 400 unit PO DAILY 07/08/17 [History] metFORMIN [Glucophage] 500 mg PO BID 07/08/17 [History] Clopidogrel [Plavix] 75 mg PO DAILY #30 tablet 07/09/17 [Rx] 3 Allergy/AdvReac Type Severity Reaction Status Date / Time No Known Allergies Allergy Verified 07/08/17 11:00 All Systems Review: The remainder of the systems were reviewed and are negative Physical Examination Vital Signs Temp Pulse Resp BP Pulse Ox 01/28/18 07:16 98.0 F 52 16 145/71 95 01/28/18 03:53 97.5 F L 57 18 140/66 97 01/27/18 23:36 98.0 F 67 19 163/95 97 01/27/18 23:10 18 144/75 01/27/18 21:45 68 18 189/102 96 01/27/18 21:29 69 18 175/87 96 01/27/18 19:33 67 14 149/85 95 01/27/18 18:58 80 16 210/111 90 01/27/18 17:32 199/83 97 01/27/18 17:31 209/96 01/27/18 17:07 98.2 F 67 18 227/87 97 Intake and Output 01/27/18 01/28/18 01/28/18 23:59 07:59 15:59 Intake Total 535 / 535 147.2 / 147.2 480 / 480 Output Total 650 / 650 Balance 535 / 535 -502.8 / -502.8 480 / 480 Intake: IV Fluids 535 / 535 147.2 / 147.2 0.9 % Sodium Chloride 500 ML @ 500 / 500 999 mls/hr IVC .Q31M ONE Rx#: [id number] Heparin 25,000 UNIT/500 ML D5W 124.2 / 124.2 25,000 unit In 500 ml @ 12 UNIT /KG/HR 20.684 mls/hr IVC .Q24H JERRI Rx#:[id number] Nitroglycerin Premix 25 MG/250 35 / 35 23 / 23 ML 25 mg In 250 ml @ 5 MCG/MIN 3 mls/hr IVC .Q24H JERRI Rx#: [id number] Oral 480 / 480 Output: Urine 650 / 650 Other: Meal Breakfast Percent of Meal Consumed 100% Weight 86.183 kg Blood Glucose* 155 134 Chest X-Ray 01/27/18 17:28 IMPRESSION: No radiographic evidence of acute cardiopulmonary disease. Sequela from old granulomatous disease. D/ / Andres Cherry / Andres Cherry Interpreting Provider: Andres Cherry Abdomen/Pelvis CTA 01/27/18 17:29 IMPRESSION: 1. Normal CTA of the aorta with no dissection or aneurysm. 2. No other acute findings in the chest, abdomen or pelvis. 3. Incidental thyroid nodules measuring up to 3.3 cm on the left. Outpatient follow-up thyroid ultrasound is recommended. D/ / Carlyle Lopez MD / Carlyle Lopez MD Interpreting Provider: Carlyle Lopez MD Chest CTA 01/27/18 17:29 IMPRESSION: 1. Normal CTA of the aorta with no dissection or aneurysm. 2. No other acute findings in the chest, abdomen or pelvis. 3. Incidental thyroid nodules measuring up to 3.3 cm on the left. Outpatient follow-up thyroid ultrasound is recommended. D/ / Carlyle Lopez MD / Carlyle Lopez MD Interpreting Provider: Carlyle Lopez MD Echocardiogram 01/28/18 01:46 Impressions: LVEF 55-60%. Normal LV chamber size and function. Mild asymmetric hypertrophy of the basal septum. Mild left ventricular diastolic dysfunction. Normal right ventricular structure and function. Mild aortic regurgitation. Borderline mild pulmonary hypertension. Left Ventricular Wall Motion: Rest Echo Findings All wall segments showed normal motion. General: Conversant, No Apparent Distress HEENT: Atraumatic, Normocephaly, Mucus Membranes Moist Neck: No JVD, Normal carotid pulses Cardiac: Reg Rate and Rhythm, Normal S1 and S2, No Murmur Lungs: Normal Breath Sounds, No Wheeze, Rales, Rhonchi Neuro: Alert and responsive, No focal deficits noted Abdomen: Soft, Non-Tender Skin: No rashes noted on visualized skin Musculoskeletal: No Chest Wall Tenderness Extremities: No Clubbing, No Cyanosis, No Edema, Normal Pulses Results 01/28/18 03:13 01/28/18 03:13 Lab Results 01/28/18 09:12 APTT 63.7 H - Imaging and Cardiology Echo: report reviewed - EKG Interpretation EKG results cardiology: personally reviewed Consult Discharge Plan - Plan Referrals: Porfirio Bearden MD [Primary Care Provider] - <Roberto Braun - Last Filed: 01/28/18 10:57> Date of Encounter: 01/28/18 - Attending Attestation I have personally performed a face to face evaluation on this patient. I have reviewed and agree with the care plan. History and Exam by me shows: Known CAD. Presents with chest pain going on for several days. On presentation had extremely high BP and mildly elevated trop. Unstable angina vs. HTN urgency. Agree with heparin and BP control. Albert check echo and consider left heart cath. Assessment and Plan Discussion w patient/family: The assessment and plan as outlined above was discussed with the patient and/or family members who expressed understanding and agreement. All questions were answered. Thank you for involving us in the care of your patient. Please call with any questions. History of Present Illness History of present illness: Mr. Haney is a 82 year old male All Systems Review: The remainder of the systems were reviewed and are negative Physical Examination Vital Signs, Last 4 Hours Pulse Pulse Ox 01/28/18 09:50 98 95 Results 01/28/18 03:13 01/28/18 03:13 Lab Results 01/28/18 09:12 APTT 63.7 H
[2018-01-28] MEDS: Finasteride 5 MG TABLET PO SCH (10:00)
[2018-01-28] MEDS: Aspirin Enteric Coated 81 MG Tablet PO SCH (10:00)
[2018-01-28] MEDS ORDERED: Dextrose Gel 15 GM/37.5 ML TUBE PO PRN ×2 (12:04)
[2018-01-28] MEDS ORDERED: *HR* Dextrose 50 % in Water (Syg) 50 ML SYRINGE IVP PRN (12:04)
[2018-01-28] MEDS ORDERED: D5% in Water 1,000 ML IVC PRN (12:04)
[2018-01-28] MEDS: Insulin LISPRO 300 UNITS/3 ML VIAL SQ SCH ×3 (13:04→21:03)
[2018-01-28] MEDS: *HR* Heparin 5,000 UNIT/ML VIAL IVP PRN (16:32)
--- NOTE | 2018-01-28 16:59 | Internal Med Progress Note ---
Date of Encounter: 01/28/18 Time of Encounter: 16:56 - Assessment and plan (1) NSTEMI (non-ST elevated myocardial infarction) Current Visit: Yes Status: Acute Assessment and plan: Cardiology consulted; appreciate input. Possible [facility]; will make NPO after midnight. ECHO showed EF 55-60%, and normal LV size and function, mild asymmetric hypertrophy of basal septum, mild LV diastolic dysfunction, normal RV structure and function, mild aortic regurgitation, and borderline mild pulmonary hypertension. Continue heparin drip. Continue home aspirin, beta fatemeh, statin, and plavix. Added hydralazine PRN for hypertension. Recheck labwork and troponin in AM. Will await further recommendations from cardiology. (2) HTN (hypertension) Current Visit: Yes Status: Chronic Assessment and plan: Continue home medications. Losartan dose was increased. Will add PRN hydralazine. Qualifiers: Hypertension type: essential hypertension Qualified Code(s): I10 - Essential (primary) hypertension (3) HLD (hyperlipidemia) Current Visit: Yes Status: Chronic Assessment and plan: Continue home medications. Qualifiers: Hyperlipidemia type: unspecified Qualified Code(s): E78.5 - Hyperlipidemia , unspecified (4) Diabetes Current Visit: Yes Status: Chronic Assessment and plan: Start accuchecks and low dose SSI QID AC/HS. Hold home PO medications. Qualifiers: Diabetes mellitus type: type 2 Diabetes mellitus nursing home insulin use: without nursing home use Diabetes mellitus complication status: without complication Qualified Code(s): E11.9 - Type 2 diabetes mellitus without complications (5) CAD (coronary artery disease) Current Visit: Yes Status: Chronic Assessment and plan: Cardiology consulted; appreciate input. Management as per above. Qualifiers: Coronary Disease-Associated Artery/Lesion type: [place] artery [place] vs. transplanted heart: [place] heart Associated angina: angina presence unspecified Qualified Code(s): I25.10 - Atherosclerotic heart disease of [place] coronary artery without angina pectoris (6) BPH (benign prostatic hyperplasia) Current Visit: Yes Status: Chronic Assessment and plan: Continue home medications. Qualifiers: Lower urinary tract symptom presence: unspecified whether lower urinary tract symptoms present Qualified Code(s): N40.0 - Benign prostatic hyperplasia without lower urinary tract symptoms (7) Constipation Current Visit: Yes Status: Acute Assessment and plan: Give miralax once now. Start miralax daily PRN and senna/docusate BID. Qualifiers: Constipation type: unspecified constipation type Qualified Code(s): K59.00 - Constipation, unspecified (8) DVT prophylaxis Current Visit: Yes Status: Acute Assessment and plan: Continue heparin drip. - Time Spent With Patient Total time spent is greater than 50% in coordination of care (as documented) at patient's floor/unit and/or counseling patient: less than 15 minutes - Subjective Interval history: Patient had no acute events overnight. He states that chest pain is resolved. Nursing staff reports some increasing BP to systolic 160s and 170s despite increase in home losartan. He states that he feels "full and constipated." He wants miralax. He denies fever, chills, SOB, nausea, vomiting, or abdominal pain. He has no other complaints at this time. - Constitutional Vitals: Temp Pulse Resp BP Pulse Ox 98.2 F 58 18 175/81 95 01/28/18 16:10 01/28/18 16:10 01/28/18 16:10 01/28/18 16:10 01/28/18 16:10 General appearance: Present: cooperative, A&O X 3, pleasant, no acute distress, obese, answers questions appropriately - Respiratory Respiratory exam: Present: CTAB. Absent: accessory muscle use, rales, rhonchi, wheezes Additional comments: Normal WOB - Cardiovascular Cardiovascular exam: Present: RRR, +S1, +S2. Absent: diastolic murmur, gallop, rubs, systolic murmur Additional comments: No BLE edema - GI/Abdominal GI/Abdominal exam: Present: distended (Mild), normal bowel sounds, soft. Absent : hepatomegaly, mass, splenomegaly, tenderness - Psychiatric Psychiatric exam: Present: normal affect, normal mood. Absent: agitated, anxious, depressed - Skin Skin exam: Present: dry, intact, warm. Absent: cyanosis, rash Internal Medicine: Result - Labs CBC & Chem 7: 01/28/18 03:13 01/28/18 03:13 - ABG Interpretation ABG results: PT/INR, D-dimer PT 11.5 Seconds (9.4-12.1) 01/28/18 03:13 Consult Discharge Plan - Plan Referrals: Porfirio Bearden MD [Primary Care Provider] -
[2018-01-28] MEDS: Sennosides/Docusate Sodium TABLET PO SCH ×2 (17:36→21:07)
[2018-01-28] MEDS ORDERED: Nitroglycerin 25 MG/250 ML INFUS..BTL IVC ONE (18:42)
[2018-01-28] MEDS ORDERED: Nitroglycerin 25 MG/250 ML INFUS..BTL IVC SCH (18:45)
[2018-01-28] MEDS ORDERED: 0.9 % Sodium Chloride 500 ML ONE (18:45)
[2018-01-28] MEDS: hydrALAZINE 25 MG TABLET PO SCH (21:02)
[2018-01-28] MEDS: Heparin 25,000 UNIT/500 ML D5W 25,000 UNIT/500 ML BAG IVC SCH (23:54)
[2018-01-29] MEDS: hydrALAZINE 25 MG TABLET PO SCH ×3 (03:17→15:10)
[2018-01-29 05:13] LABS: Basophils % 0.5 %; Eosinophils % 0.5 %; Hematocrit 41.8 % (37.5-50.1); Hemoglobin 14.6 g/dL (12.9-16.9); Immature Granulocytes % 0.2 % (0-4); Lymphocytes # 1.1 K/mcL (0.6-4.6); Lymphocytes % 12.7 %; Mean Corpuscular HGB Conc 34.9 g/dL (31.6-35.5); Mean Corpuscular Volume 88.7 fL (83.0-100.0); Mean Platelet Volume 9.4 fL (9.4-12.4); Monocytes # 0.9 K/mcL (0.0-1.3); Monocytes % 10.3 %; Neutrophils # 6.6 K/mcL (1.6-8.9); Platelet Count 138 K/mcL (140-400); Red Blood Count 4.71 M/mcL (4.19-5.50); Red Cell Distribution Width 12.6 % (11.5-14.5); Segmented Neutrophils % 75.8 %
[2018-01-29 05:38] LABS: BUN/Creatinine Ratio 11 (6-26); Blood Urea Nitrogen 11 mg/dL (8-23); Calcium 8.9 mg/dL (8.6-10.3); Carbon Dioxide 22 mEq/L (23-29); Chloride 104 mEq/L (98-107); Glucose 173 mg/dL (70-105); Osmolality,Calculated 278 (280-300); Potassium 3.8 mEq/L (3.5-5.1); Sodium 132 mEq/L (136-145); eGFR For African Americans > 60 (> 60); eGFR For Non-African Americans > 60 (> 60)
[2018-01-29 05:40] LABS: Troponin I 0.13 ng/mL (< 0.04)
[2018-01-29] MEDS: Finasteride 5 MG TABLET PO SCH (08:00)
[2018-01-29] MEDS: Sennosides/Docusate Sodium TABLET PO SCH ×2 (08:00→20:10)
[2018-01-29] MEDS: Aspirin Enteric Coated 81 MG Tablet PO SCH (08:00)
[2018-01-29] MEDS: Insulin LISPRO 300 UNITS/3 ML VIAL SQ SCH ×4 (08:03→20:26)
--- NOTE | 2018-01-29 13:29 | Cardiology Progress Note ---
Date of Encounter: 01/29/18 Time of Encounter: 13:26 Assessment and Plan (1) Unstable angina Current Visit: No Status: Acute C/o typical chest pain symptoms. Mild troponin in the setting of HTN urgency. EKG with changes concerning for ischemia. TTE completed today and shows LVEF 55-60%. Normal LV chamber size and function. Mild asymmetric hypertrophy of the basal septum. Mild left ventricular diastolic dysfunction. Normal right ventricular structure and function. Mild aortic regurgitation. Borderline mild pulmonary hypertension. Chest pain and symptoms concerning for unstable angina with known CAD. Continue heparin gtt. Asa, statin, plavix and bb. Recommend better blood pressure control. B/p improved. I discussed medical management verses [facility]. Patient would like to proceed with [facility]. (2) CAD (coronary artery disease) Current Visit: Yes Status: Chronic Prior cardiac testing: TTE 10/02/2012: LVEF 40%. Mildly dilated LV. Mild global and segmental systolic dysfunction. Normal LV diastolic function. Normal RV size and function. Moderate left atrial enlargement. Sclerotic trileaflet aortic valve with moderate central aortic regurgitation. Mild pulmonary hypertension, estimated RVSP 40 mmHg. TTE 07/09/2017: LVEF 50-55%. Mild diastolic dysfunction. Mildly dilated left ventricle. Mild to moderate AR. No pHTN. [facility] 07/08/2017: LM 15% stenosis. LAD proximal 99% stenosis (MEENU x1 placed) and mid 80% stenosis (MEENU x1 placed). Circumflex proximal 30% stenosis. OM1 95% stenosis (MEENU x1 placed), prior OM1 stent patent. RCA proximal 30%, mid 25% ISR , and distal 30% stenosis. Continue asa, statin, bb, and plavix. Qualifiers: Coronary Disease-Associated Artery/Lesion type: [place] artery [place] vs. transplanted heart: [place] heart Associated angina: angina presence unspecified Qualified Code(s): I25.10 - Atherosclerotic heart disease of [place] coronary artery without angina pectoris (3) HTN (hypertension) Current Visit: Yes Status: Chronic HTN urgency on admission. Increased cozaar. B/p improving. WIll increase further to 75 mg daily. Qualifiers: Hypertension type: essential hypertension Qualified Code(s): I10 - Essential (primary) hypertension Discussion w patient/family: The assessment and plan as outlined above was discussed with the patient and/or family members who expressed understanding and agreement. All questions were answered. Thank you for involving us in the care of your patient. Please call with any questions. Subjective Principal diagnosis: elevated troponin Interval history: Denies recurrent chest pain. STates he is concerned of recurrent chest pain once he is doing activity. B/p improved. Objective Vital Signs, Last 4 Hours Temp Pulse Resp BP Pulse Ox 01/29/18 11:24 98.2 F 56 18 157/73 96 General: Conversant, No Apparent Distress HEENT: Atraumatic, Normocephaly, Mucus Membranes Moist Neck: No JVD, Normal carotid pulses Cardiac: Reg Rate and Rhythm, Normal S1 and S2, No Murmur Lungs: Normal Breath Sounds, No Wheeze, Rales, Rhonchi Neuro: Alert and responsive, No focal deficits noted Abdomen: Soft, Non-Tender Skin: No rashes noted on visualized skin Musculoskeletal: No Chest Wall Tenderness Extremities: No Clubbing, No Cyanosis, No Edema, Normal Pulses Results 01/29/18 05:00 01/29/18 05:00 Lab Results 01/28/18 01/28/18 01/29/18 15:44 22:50 05:00 WBC 8.7 Hgb 14.6 Hct 41.8 Plt Count 138 L APTT 51.5 H 66.1 H Sodium Potassium Chloride Carbon Dioxide BUN Creatinine Glucose Calcium Troponin I 01/29/18 01/29/18 05:00 05:00 WBC Hgb Hct Plt Count APTT 63.4 H Sodium 132 L Potassium 3.8 Chloride 104 Carbon Dioxide 22 L BUN 11 Creatinine 1.02 Glucose 173 H Calcium 8.9 Troponin I 0.13 H* - Imaging and Cardiology Cardiac cath: report reviewed - EKG Interpretation EKG results cardiology: personally reviewed Consult Discharge Plan - Plan Referrals: Porfirio Bearden MD [Primary Care Provider] -
--- NOTE | 2018-01-29 14:23 | Internal Med Progress Note ---
Date of Encounter: 01/29/18 Time of Encounter: 12:30 - Assessment and plan (1) NSTEMI (non-ST elevated myocardial infarction) Current Visit: Yes Status: Acute Assessment and plan: Cardiology consulted; appreciate input. Possible [facility]; will make NPO after midnight. ECHO showed EF 55-60%, and normal LV size and function, mild asymmetric hypertrophy of basal septum, mild LV diastolic dysfunction, normal RV structure and function, mild aortic regurgitation, and borderline mild pulmonary hypertension. Continue heparin drip. Continue home aspirin, beta fatemeh, statin, and plavix. Added hydralazine PRN for hypertension. Recheck labwork and troponin in AM. Will await further recommendations from cardiology. 01/29: No plans for left heart catheterization. Patient continues on a heparin drip. He is pain-free. Will increase his beta fatemeh. (2) HTN (hypertension) Current Visit: Yes Status: Chronic Assessment and plan: Continue home medications. Losartan dose was increased. Will add PRN hydralazine. 01/29: Increase beta fatemeh. Monitor. Qualifiers: Hypertension type: essential hypertension Qualified Code(s): I10 - Essential (primary) hypertension (3) HLD (hyperlipidemia) Current Visit: Yes Status: Chronic Assessment and plan: Continue home medications. Qualifiers: Hyperlipidemia type: unspecified Qualified Code(s): E78.5 - Hyperlipidemia , unspecified (4) Diabetes Current Visit: Yes Status: Chronic Qualifiers: Diabetes mellitus type: type 2 Diabetes mellitus half-way insulin use: without long term care administrator use Diabetes mellitus complication status: without complication Qualified Code(s): E11.9 - Type 2 diabetes mellitus without complications (5) CAD (coronary artery disease) Current Visit: Yes Status: Chronic Assessment and plan: Cardiology consulted; appreciate input. Management as per above. Qualifiers: Coronary Disease-Associated Artery/Lesion type: [place] artery [place] vs. transplanted heart: [place] heart Associated angina: angina presence unspecified Qualified Code(s): I25.10 - Atherosclerotic heart disease of [place] coronary artery without angina pectoris (6) BPH (benign prostatic hyperplasia) Current Visit: Yes Status: Chronic Assessment and plan: Continue home medications. Qualifiers: Lower urinary tract symptom presence: unspecified whether lower urinary tract symptoms present Qualified Code(s): N40.0 - Benign prostatic hyperplasia without lower urinary tract symptoms (7) Constipation Current Visit: Yes Status: Acute Assessment and plan: Give miralax once now. Start miralax daily PRN and senna/docusate BID. Qualifiers: Constipation type: unspecified constipation type Qualified Code(s): K59.00 - Constipation, unspecified (8) DVT prophylaxis Current Visit: Yes Status: Acute Assessment and plan: Continue heparin drip. - Time Spent With Patient Total time spent is greater than 50% in coordination of care (as documented) at patient's floor/unit and/or counseling patient: 25 - 35 minutes - Subjective Interval history: Mr. Haney is a 82 year old male presents from home for evaluation of intermittent Chest pain for the past 4 days. the pain is dull heavy ache across his chest radiating town both arms as well as to his back. No associated nausea, vomiting, dyspena, diaphoresis, or abdominal pain. He stated that his chest pain was resolved completely alleviated with nitroglycerin sublingual however he noted that lately he become less responsive to nitroglycerin sublingual. The patient CAT scan of the chest and abdomen was was no significant abnormalities, he was started on nitroglycerin drip. His troponin was elevated at 0.04 EKG shows sinus rhythm with a first-degree block, nonspecific ST-T wave changes in the leads V2 through V5 as well as T-wave inversions in the inferior leads. This is consistent with old EKG and unchanged. The patient still has chest pain and his troponin is elevated he will be started on low-dose ACS heparin. Her surgery was consulted and they recommended to admit the patient for further evaluation and management. 01/29: Patient currently denies any chest pain or shortness of breath. No nausea , vomiting, diarrhea. No fevers or chills. No cardiology plans for left heart catheterization. - Constitutional Vitals: Temp Pulse Resp BP Pulse Ox 98.2 F 56 18 157/73 96 01/29/18 11:24 01/29/18 11:24 01/29/18 11:24 01/29/18 11:24 01/29/18 11:24 General appearance: Present: cooperative, A&O X 3, pleasant, no acute distress, obese, answers questions appropriately - Head Head exam: Present: atraumatic, normocephalic - Eye Eye exam: Present: PERRL, conjuntiva pink, sclera anicteric Pupils: Present: PERRL - Neck Neck exam general surgery: Present: supple, trachea midline. Absent: lymphadenopathy - Respiratory Respiratory exam: Present: CTAB. Absent: accessory muscle use, rales, rhonchi, wheezes - Cardiovascular Cardiovascular exam: Present: RRR, +S1, +S2. Absent: diastolic murmur, gallop, rubs, systolic murmur - GI/Abdominal GI/Abdominal exam: Present: normal bowel sounds, soft, no peritoneal signs. Absent: distended, tenderness - Extremities Exam Extremities exam: Present: warm, radial pulses palpable and symmetrical. Absent : calf tenderness, cyanotic, pedal edema - Neurological Exam Neurological exam: Present: CN II-XII intact, oriented X3, no focal deficits. Absent: pronater drift, facial droop, speech deficit - Skin Skin exam: Present: dry, intact Internal Medicine: Result - Labs CBC & Chem 7: 01/29/18 05:00 01/29/18 05:00 Labs: Short CBC 01/29/18 Range/Units 05:00 WBC 8.7 (4.3-11.1) K/mcL Hgb 14.6 (12.9-16.9) g/dL Hct 41.8 (37.5-50.1) % Plt Count 138 L (140-400) K/mcL Neutrophils # 6.6 (1.6-8.9) K/mcL BMP 01/29/18 05:00 Sodium 132 L Potassium 3.8 Chloride 104 Carbon Dioxide 22 L BUN 11 Creatinine 1.02 Glucose 173 H Calcium 8.9 Cardiac Enzymes 01/29/18 Range/Units 05:00 Troponin I 0.13 H* (< 0.04) ng/mL - ABG Interpretation ABG results: PT/INR, D-dimer PT 11.5 Seconds (9.4-12.1) 01/28/18 03:13 Consult Discharge Plan - Plan Referrals: Porfirio Bearden MD [Primary Care Provider] -
[2018-01-29] MEDS ORDERED: hydrALAZINE 25 MG TABLET PO SCH (18:39)
[2018-01-29] MEDS ORDERED: 0.9 % Sodium Chloride 500 ML ONE (20:00)
[2018-01-30] MEDS: hydrALAZINE 25 MG TABLET PO SCH ×4 (00:36→23:37)
[2018-01-30] MEDS: Heparin 25,000 UNIT/500 ML D5W 25,000 UNIT/500 ML BAG IVC SCH (00:57)
[2018-01-30] MEDS: Insulin LISPRO 300 UNITS/3 ML VIAL SQ SCH ×4 (07:50→20:11)
[2018-01-30] MEDS: Finasteride 5 MG TABLET PO SCH (08:16)
[2018-01-30] MEDS: Sennosides/Docusate Sodium TABLET PO SCH ×2 (08:19→20:11)
[2018-01-30] MEDS: *HR* Heparin 5,000 UNIT/ML VIAL IVP PRN (08:19)
[2018-01-30] MEDS: Aspirin Enteric Coated 81 MG Tablet PO SCH (08:19)
[2018-01-30] MEDS ORDERED: Verapamil 5 MG/2 ML VIAL ONE (10:28)
[2018-01-30] MEDS ORDERED: Heparin 1,000 UNITS/500 mL 500 ML ONE (10:28)
[2018-01-30] MEDS ORDERED: 0.9 % Sodium Chloride 1,000 ML ONE ×2 (10:28→10:29)
[2018-01-30] MEDS ORDERED: ISOVUE-370 200 ML INFUS..BTL IV ONE ×2 (10:28→11:23)
[2018-01-30] MEDS ORDERED: *HR* Heparin 10,000 UNIT/10 ML VIAL ONE (10:28)
[2018-01-30] MEDS ORDERED: Nitroglycerin 1,000 MCG/10 ML VIAL IV ONE ×2 (10:29→11:46)
--- NOTE | 2018-01-30 11:10 | Pre-Sedation Evaluation ---
Pre-sedation evaluation - Pre-sedation checklist Date of procedure: 01/30/18 Procedure: HEART CATH Recent Vitals: Last Vital Signs Temp 98.0 F 01/30/18 07:09 Pulse 78 01/30/18 09:45 Resp 18 01/30/18 07:09 BP 142/79 01/30/18 09:45 Pulse Ox 97 01/30/18 09:45 H&P (including ROS) documented in medical record: Yes Previous reaction to sedatives/anesthetics: No Dietary Status: NPO after Midnight Dentition: No loose teeth or bridges ASA Classification *see protocol: CLASS II-Mild systemic disease Plan of Care: Pt appropriate candidate for procedure/moderate/conscious sedation , Risks/benefits of procedure/sedation discussed w/ patient/family Cardiac Registry (Cardio Only) - Functional Capacity Functional Capacity: >=4 METS with symptoms - Clincal Frailty Scale Clinical Frailty Scale: Managing Well
[2018-01-30] MEDS ORDERED: *HR* FentaNYL (PF) 100 MCG/2 ML VIAL ONE (11:11)
[2018-01-30] MEDS ORDERED: *HR* Midazolam HCl 5 MG/5 ML VIAL IVP ONE (11:11)
[2018-01-30] MEDS ORDERED: Tirofiban 12.5 MG/250ML 12.5 MG/250 ML BAG ONE (11:23)
--- NOTE | 2018-01-30 12:23 | Invasive Diagnostic Lab Proc ---
Name: Matt Haney Date of Study: 01/30/2018 Date: 1935 Ht: 68.1in Medical Record#: [id number] Age: 82 Wt: 191.80lb Gender: Male BSA: 2.01 Order #: [id number] BMI: 29.07 Physicians Procedure Physician: Brannon Dejesus MD, [facility] Referring MD: Referring MD: Staff Name Position Time In Babs Herring RT Scrub 10:51 AM Alessandro Avalos RT (R) Monitor 10:51 AM Gala Reid RN Slip Maker 10:51 AM Marily Moore RN Slip Maker 10:51 AM Indications Indication Non-Stemi Procedures Performed Procedure L HRT ARTERY/VENTRICLE ANGIO PRQ CARDIAC ANGIOPLAST 1 ART Pre-Procedure Checklist Informed consent is complete signed and on chart. H&P is on chart. ID band is on and ID verified with patient. Patient NPO for procedure The procedure was described for the patient and questions were answered. Blood Pressure: 187/89 ECG is on chart. Rhythm: NSR Plan of Care Patient will tolerate the procedure without complications. Adequate level of comfort will be maintained. Hemodynamics will remain stable Patient will recover from procedure without complications. Respiratory function will be maintained. Cardiac rhythm will remain stable. Patient temperature will be maintained. Patient and/or family have verbalized understanding of the procedure. Patient Education Chief Complaint/Reason for Test: Cardiac Cath Developmental Category: Geriatric (65+ years) Developmentally Appropriate for Age: Yes Learning Barriers: None Education Needs: Procedure Education Method: Verbal Information Taught: Cardiac Cath Educational Evaluation: Able to repeat information Intravenous Access Time IV Size Location DC'd Fluid/Drip Rate Units RN 11:04 AM 20g 1 1/4" Patent On Arrival Lt Wrist 0.9NaCl 25 ml/hr Gala Reid RN 18g 1 1/4" Peripheral-Lock On Arrival Rt Antecubital Allergies No Known Allergies Vital Signs Time BP (mmHg) HR (bpm) O2 Sat. RR (bpm) LOC 11:03 AM 187 / 89 75 96 % 16 5 = Fully awake and oriented or at pre-proc level 11:03 AM / % 4 = Oriented but drowsy 11:19 AM / % 4 = Oriented but drowsy 11:34 AM / % 4 = Oriented but drowsy 11:49 AM / % 5 = Fully awake and oriented or at pre-proc level 11:58 AM 155 / 75 68 96 % 12:03 PM 156 / 73 86 % 11:11 AM 187 / 89 77 97 % 11:16 AM 193 / 100 74 98 % 11:18 AM 173 / 87 72 96 % 11:23 AM 157 / 72 64 97 % 11:27 AM 150 / 89 65 96 % 11:33 AM 147 / 76 64 98 % 11:37 AM 130 / 67 65 96 % 11:43 AM 139 / 67 64 96 % 11:48 AM 132 / 70 67 96 % 11:53 AM 142 / 69 68 96 % Procedural Medications Time Medication Dose Units Method Given By 11:09 AM Oxygen 2 L/min nasal cannula Gala Reid RN 11:15 AM Versed 2 mg Intravenous Gala Reid RN 11:15 AM Fentanyl 50 mcg Intravenous Gala Reid RN 11:32 AM Lidocaine 2% 0.5 ml Subcutaneous Brannon Dejesus MD, FACC 11:34 AM Heparin 2000 units Nitroglycerin 200 mcg Verapamil 2.5 mg Intraarterial Brannon Dejesus MD, FACC 11:41 AM Nitroglycerin 100 mcg Intracoronary Brannon Dejesus MD 11:48 AM Heparin 1500 units Intravenous Gala Reid RN 12:03 PM Plavix 300 mg Orally Gala Reid RN ASA Classification: CLASS III- Severe systemic disease (i.e. prior AMI, diabetes with vascular complications, morbid obesity) Keiry Score Preprocedure Postprocedure Activity 2- Moves 4 extremities sustained head lift Activity 2- Moves 4 extremities sustained head lift Circulation 2- SBP +/= 20 points of pre-anesthetic level Circulation 2- SBP +/= 20 points of pre-anesthetic level Consciousness 2- Awake and alert oriented x 3 Consciousness 2- Awake and alert oriented x 3 O2 Saturation 2- Able to maintain O2 satruation of 92% on room air O2 Saturation 2- Able to maintain O2 satruation of 92% on room air Respiratory 2- Able to deep breathe and cough well Respiratory 2- Able to deep breathe and cough well Total Score 10 Total Score 10 Contrast Agent: Isovue Diagnostic Contrast: 101 ml Total Contrast: 101 ml Fluoro Dose: 4386 mGy Activated Clotting Time Time Seconds to Clot 11:47 AM 275 Procedure Log Time Note Enter By 10:51 AM Babs Herring Position: Scrub Time in: 10:51 [email or web address] 10:51 AM Alessandro Avalos RT (R) Position: Monitor Time in: 10:51 2 10:51 AM Gala Reid RN Position: Slip Maker Time in: 10:51 2 10:51 AM Marily Moore RN Position: Slip Maker Time in: 10:51 [email or web address] 10:51 AM Patient charges- Angio tray pack, Navilyst 3mm J, Pulse Oximetry and ACIST tubing and transducer [email or web address] 10:55 AM Clinical Presentation: Non-STEMI [email or web address] 11:03 AM CathStat 11:03 AM Pt arrived to laboratory equipment cleaner 2 at 11:03 [email or web address] 11:03 AM Case Delayed No [email or web address] 11:03 AM Time: 11:03 Patient comfortable and pain free: Yes 11:03 AM Time: 11:03LOC: 5 = Fully awake and oriented or at pre-proc level [email or web address] 11:07 AM Physician arrived 11:07 2 11:07 AM Meet and greet completed 11:07 AM Sign in performed according to hospital policy. 11:07 AM Procedure start 11:07 11:09 AM ASA Class CLASS III- Severe systemic disease (i.e. prior AMI, diabetes with vascular complications, morbid obesity) 11:09 AM Time: 11:09 Oxygen on at 2 L/min per nasal cannula by Gala Reid RN 11:10 AM Vitals capture started with the following parameters, Patient=Adult, Interval=5 min, Initial Fggmtubk=816 mmHg, Deflation Rate=5 mmHg, Cuff placed on Right Arm 11:10 AM Recorded ECG: HR=75 Condition=Condition 1 11:10 AM Hair removed from procedure site in procedure lab using clippers. Right wrist prepped with Chloraprep by Babs Herring, then patient was draped. Skin intact. [email or web address] 11:10 AM Hair removed from procedure site in procedure lab using clippers. Right groin prepped with Chloraprep by Babs Herring, then patient was draped. Skin intact. [email or web address] 11:11 AM HR=77 bpm, QADR=756/89 mmhg, SpO2=97.0 % 11:15 AM Time: :15 Versed 2 mg Intravenous Given by Gala Reid RN 2 11:15 AM Time: 11:15 Fentanyl 50 mcg Intravenous Given by Gala Reid RN [email or web address] 11:16 AM HR=74 bpm, FZWD=204/100 mmhg, SpO2=98.0 % 11:17 AM Vitals capture stopped. 11:17 AM Vitals capture started with the following parameters, Patient=Adult, Interval=5 min, Initial Mjgejcny=778 mmHg, Deflation Rate=5 mmHg, Cuff placed on Right Arm 11:18 AM HR=72 bpm, PZQQ=502/87 mmhg, SpO2=96.0 % 11:19 AM Time: 11:03LOC: 4 = Oriented but drowsy [email or web address] 11:19 AM Time: 11:03 Patient comfortable and pain free: Yes [email or web address] 11:23 AM HR=64 bpm, GPLH=310/72 mmhg, SpO2=97.0 % 11:23 AM Pressure channel 1 zeroed. 11:27 AM HR=65 bpm, LEBT=278/89 mmhg, SpO2=96.0 % 11:32 AM Time out performed according to hospital policy 11:32 AM Time: 32 0.5 ml Lidocaine 2% to right radial Subcutaneous Given by Brannon Dejesus MD, FACC 2 11:33 AM HR=64 bpm, VEDO=535/76 mmhg, SpO2=98.0 % 11:33 AM Access obtained by percutaneous puncture. 6Fr 10cm Terumo Glidesheath sheath placed in right Radial artery. [id number] [email or web address] 11:33 AM 0.035 260cm Navilyst 3mmJ wire [id number] 2 11:34 AM Time: Patient comfortable and pain free: Yes 2 11:34 AM Time: LOC: 4 = Oriented but drowsy [email or web address] 11:34 AM Time: :34 Patient given 2,000 units Heparin, 200 mcg Nitroglycerin, and 2.5 mg Verapamil Intraarterial by Brannon Dejesus MD, FACC. This is given to reduce risk of vessel spasm and thrombosis. 2 11:34 AM 5Fr TIG catheter inserted over the wire DNC ilson 11:35 AM j wire removed [email or web address] 11:35 AM 0.035 145cm VSI Patel-Torque wire [id number] [email or web address] 11:37 AM Wire removed [email or web address] 11:37 AM RCA angiography performed in multiple views. [email or web address] 11:37 AM Recorded Pressure: Ao, HR=63, Condition=Condition 1 (Aorta) Ao 154/52/98 11:37 AM HR=65 bpm, TRWY=356/67 mmhg, SpO2=96.0 % 11:38 AM Recorded Pressure: Ao, HR=65, Condition=Condition 1 (Aorta) Ao 108/62/82 11:39 AM Catheter removed [email or web address] 11:40 AM 5Fr FL3.5 catheter inserted over the wire [id number] [email or web address] 11:40 AM LCA angiography performed in multiple views. [email or web address] 11:41 AM Recorded Pressure: Ao, HR=64, Condition=Condition 1 (Aorta) Ao 125/58/84 11:42 AM Time: 11:41 Nitroglycerin 100 mcg Intracoronary Given by Brannon Dejesus MD [email or web address] 11:42 AM Lesion found in Mid LAD. Pre Stenosis: 95 Pre CLEMENTINA Flow: [email or web address] 11:42 AM Mid/Distal Left Anterior Descending Coronary Artery and diagonal branches with 95% stenosis. If graft is supplying this area, 0 % stenosis [email or web address] 11:43 AM HR=64 bpm, GZUS=389/67 mmhg, SpO2=96.0 % 11:43 AM Catheter removed [email or web address] 11:43 AM Inflation device was opened. [email or web address] 11:44 AM 6Fr RBL 3.5 Convey guide catheter was used to cannulate the PCI vessel successfully. reused? No [email or web address] 11:44 AM drawing ACT [email or web address] 11:46 AM Lesion found in Mid RCA. Pre Stenosis: 30 Pre CLEMENTINA Flow: [email or web address] 11:46 AM Right Coronary, Right Posterior Descending Arteries with Right Posterolateral and Acute Marginal branches with 30 % stenosis. If graft is supplying this area, 0 % stenosis [email or web address] 11:47 AM .014 Simpson 300cm guide wire across target lesion- successful. reused? No [email or web address] 11:47 AM At 11:47 the ACT was 275 seconds. [email or web address] 11:48 AM HR=67 bpm, SIMS=359/70 mmhg, SpO2=96.0 % 11:48 AM Time: 11:48 Heparin 1500 units Intravenous Given by Gala Reid RN [email or web address] 11:49 AM 2.0 mm x 12 mm Emerge Monorail balloon across target lesion- successful. reused? No [email or web address] 11:49 AM Time: 11:34 Patient comfortable and pain free: Yes [email or web address] 11:49 AM Time: 11:34LOC: 4 = Oriented but drowsy [email or web address] 11:50 AM Balloon inflated @ 14 bea for 17 seconds [email or web address] 11:51 AM Balloon catheter removed intact. [email or web address] 11:53 AM HR=68 bpm, EUSE=697/69 mmhg, SpO2=96.0 % 11:54 AM Lesion found in 1st Diagonal. Pre Stenosis: 50 Pre CLEMENTINA Flow: [email or web address] 11:54 AM 2.25 mm x 12mm NC Trek Rx balloon across target lesion- successful. reused? No [place] [address] 11:55 AM Balloon inflated @ 18 bea for [email or web address] 11[facility] AM Guide wire removed intact. [email or web address] 11:56 AM Balloon catheter removed intact. [email or web address] 11:57 AM Guide catheter removed intact. [facility] 11:57 AM 5Fr Pigtail catheter inserted over the [place] [id number] 11:58 AM HR=68 bpm, AETI=116/75 mmhg, SpO2=96.0 % 11:58 AM Catheter selectively placed in left ventricle [place] [address] 11:58 AM Bolus angiogram of left Ventricle complete: 12 ml/sec for a total of 25 mls [place] [address] 11:58 AM Recorded Pressure: LV, HR=70, Condition=Condition 1 (Left Ventricle) LV 154/3/14 11:59 AM Recorded Pressure: LV, Ao, HR=69, Condition=Condition 1 (Left Ventricle) LV 156/8/52, (Aorta) Ao 166/69/108 12:00 PM Catheter removed [place] [address] 12:02 PM Arterial sheath pulled, Vasc Band closure device used and was Successful S/N. [place] [address] 12:02 PM Procedure completed at 12:02 01/30/2018 [place] [address] 12:03 PM Sign out completed: Radiation Dose 473.35 mGy, 4385.94 cGy/cm2 Fluoro Time: 5.4 Isovue 370 - 200ml contrast 101 ml given by Brannon Dejesus MD, [facility]. Complications: NoneCardiac Rehab Consult needed: YesConfirmed administered medications: Yes [place] [address] 12:03 PM HR=86 bpm, IHDY=599/73 mmhg 12:03 PM Time: 12:03 Plavix 300 mg Orally Given by Gala Reid RN [email or web address] 12:04 PM Isovue 370 - 200ml,1 Bottle(s) used. [email or web address] 12:04 PM Estimated Blood Loss: less than 20cc [email or web address] 12:04 PM Post ECG NSR [email or web address] 12:04 PM Post Blood Pressure 156/73 [email or web address] 12:04 PM Time: 11:49 Patient comfortable and pain free: Yes [email or web address] 12:04 PM Time: 11:49LOC: 5 = Fully awake and oriented or at pre-proc level [email or web address] 12:04 PM 12:04 Post Pulses Rt Radial 1+ [email or web address] 12:04 PM Information taught Cardiac Cath, PCI, and Vasc Band [email or web address] 12:04 PM Education needs Procedure, Plan of Care, and Disease Process [email or web address] 12:04 PM Learning barriers :None [email or web address] 12:04 PM Education Methods Verbal [email or web address] 12:04 PM Education evaluation Able to repeat information [email or web address] 12:05 PM Site status No bleeding/hematoma - Rt Wrist as reported by Babs Herring RT at 12:04 [email or web address] 12:05 PM Delay to floor No [email or web address] 12:05 PM Family placed in consult room. [email or web address] 12:05 PM Complications: None [email or web address] 12:05 PM Fluoro Time: 5.4 [email or web address] 12:05 PM Isovue 370 - 200ml contrast 101 ml given by . [email or web address] 12:05 PM Radiation Dose 473.35 mGy [email or web address] 12:07 PM Vitals capture stopped. 12:08 PM Patient out of room: 12:08 [email or web address] 12:10 PM Report given to chilo [place] Pt taken to 2N Room #4. 12:10 [email or web address] Complications Complication None None Hemodynamics Pressures Site Systolic/A Wave Diastolic/V Wave Mean AO 154 52 98 AO 108 62 82 AO 125 58 84 LV 154 3 14 LV 156 8 52 AO 166 69 108 Post Procedure Information Blood Pressure: 156/73 mmHg Rhythm: NSR Post procedural instructions were given Closure Device Time Device Success/Fail 01/30/2018 12:02:00 PM Mechanical Compression Successful Site Checks Time Location Status Staff Sheath In? Note 12:04 PM Rt Wrist No bleeding/hematoma Babs Herring RT Pulses Time Site Pre-Procedure Post-Procedure Note 01/30/2018 11:04:00 AM Bilateral DP & PT 1+ 01/30/2018 11:04:00 AM Bilateral radial 2+ 12:04:00 PM Rt Radial 1+ Updated by Alessandro Avalos RT (R) on 01/30/2018 12:16:08 PM Alessandro Avalos, RT electronically signed on 01/30/2018 12:16:34 PM with status of Final
[2018-01-30] MEDS ORDERED: Ondansetron 4 MG/2 ML VIAL IVP PRN (12:26)
--- NOTE | 2018-01-30 13:57 | Internal Med Progress Note ---
Date of Encounter: 01/30/18 Time of Encounter: 13:55 - Assessment and plan (1) NSTEMI (non-ST elevated myocardial infarction) Current Visit: Yes Status: Acute Assessment and plan: Cardiology consulted; appreciate input. S/P C today with ballooning of LAD. ECHO showed EF 55-60%, and normal LV size and function, mild asymmetric hypertrophy of basal septum, mild LV diastolic dysfunction, normal RV structure and function, mild aortic regurgitation, and borderline mild pulmonary hypertension. Continue home aspirin, beta fatemeh, statin, and plavix. Management of hypertension as per below. Recheck labwork in AM. Will await further recommendations from cardiology. (2) HTN (hypertension) Current Visit: Yes Status: Chronic Assessment and plan: Continue home medications. Losartan dose was increased. Continue scheduled hydralazine. Will use additional doses of hydralazine PRN. Qualifiers: Hypertension type: essential hypertension Qualified Code(s): I10 - Essential (primary) hypertension (3) HLD (hyperlipidemia) Current Visit: Yes Status: Chronic Assessment and plan: Continue home medications. Qualifiers: Hyperlipidemia type: unspecified Qualified Code(s): E78.5 - Hyperlipidemia , unspecified (4) Diabetes Current Visit: Yes Status: Chronic Assessment and plan: Continue accuchecks and low dose SSI QID AC/HS. Hold home PO medications. Qualifiers: Diabetes mellitus type: type 2 Diabetes mellitus half-way insulin use: without intermediate school teacher use Diabetes mellitus complication status: without complication Qualified Code(s): E11.9 - Type 2 diabetes mellitus without complications (5) CAD (coronary artery disease) Current Visit: Yes Status: Chronic Assessment and plan: Cardiology consulted; appreciate input. Management as per above. Qualifiers: Coronary Disease-Associated Artery/Lesion type: [place] artery [place] vs. transplanted heart: [place] heart Associated angina: angina presence unspecified Qualified Code(s): I25.10 - Atherosclerotic heart disease of [place] coronary artery without angina pectoris (6) BPH (benign prostatic hyperplasia) Current Visit: Yes Status: Chronic Assessment and plan: Continue home medications. Qualifiers: Lower urinary tract symptom presence: unspecified whether lower urinary tract symptoms present Qualified Code(s): N40.0 - Benign prostatic hyperplasia without lower urinary tract symptoms (7) Constipation Current Visit: Yes Status: Acute Assessment and plan: Continue miralax daily PRN and senna/docusate BID. Qualifiers: Constipation type: unspecified constipation type Qualified Code(s): K59.00 - Constipation, unspecified (8) DVT prophylaxis Current Visit: Yes Status: Acute Assessment and plan: Continue SCDs. - Time Spent With Patient Total time spent is greater than 50% in coordination of care (as documented) at patient's floor/unit and/or counseling patient: less than 15 minutes - Subjective Interval history: Patient had no acute events overnight. He states that chest pain remains resolved. He had LHC today with ballooning of LAD. Nursing staff reports increased BP to systolic 160-180s. Hydralazine was scheduled yesterday. He denies fever, chills, SOB, nausea, vomiting, or abdominal pain. He has no other complaints at this time. - Constitutional Vitals: Temp Pulse Resp BP Pulse Ox 98.0 F 76 18 183/77 97 01/30/18 07:09 01/30/18 13:48 01/30/18 13:48 01/30/18 13:48 01/30/18 13:48 General appearance: Present: cooperative, A&O X 3, pleasant, no acute distress, obese, answers questions appropriately - Respiratory Respiratory exam: Present: CTAB. Absent: accessory muscle use, rales, rhonchi, wheezes Additional comments: Normal WOB - Cardiovascular Cardiovascular exam: Present: RRR, +S1, +S2. Absent: diastolic murmur, gallop, rubs, systolic murmur Additional comments: No BLE edema - GI/Abdominal GI/Abdominal exam: Present: normal bowel sounds, soft. Absent: distended, hepatomegaly, mass, splenomegaly, tenderness - Psychiatric Psychiatric exam: Present: normal affect, normal mood. Absent: agitated, anxious, depressed - Skin Skin exam: Present: dry, intact, warm. Absent: cyanosis, rash Internal Medicine: Result - Labs CBC & Chem 7: 01/29/18 05:00 01/29/18 05:00 - ABG Interpretation ABG results: PT/INR, D-dimer PT 11.5 Seconds (9.4-12.1) 01/28/18 03:13 - VTE Documentation of Mechanical Device: Intermittent pneumatic compression device Consult Discharge Plan - Plan Referrals: Obinna Khanna, RESIDENTIAL DRIVER [Advanced Practice Nurse] - (office will call patient at home with follow up appointment) Porfirio Bearden MD [Primary Care Provider] - 02/07/18 2:15 pm
--- NOTE | 2018-01-30 17:45 | Electrocardiograph Report ---
[place] [address] Test Date: 2018-01-27 Pat Name: Matt Haney Department: 103 Room: 2N04 Gender: M Testing Tech: SAVANNA : 1935 Requested By: Alessandro Olivas Order Number: [id number] Reading MD: Brannon Dejesus Measurements Intervals [place] Rate: 61 P: 55 CO: 196 QRS: 11 QRSD: 118 T: -25 QT: 451 QTc: 455 Interpretive Statements SINUS RHYTHM WITH MARKED RHYTHM IRREGULARITY, POSSIBLE NON-CONDUCTED PAC, SA BLOCK, AV BLOCK, OR SINUS PAUSE LEFT VENTRICULAR HYPERTROPHY AND ST-T CHANGE ANTERIOR ISCHEMIA INFERIOR MYOCARDIAL INFARCTION, OF INDETERMINATE AGE Electronically Signed On 01-30-2018 17:44:09 EDT by Brannon Dejesus
--- NOTE | 2018-01-30 17:46 | Electrocardiograph Report ---
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
--- NOTE | 2018-01-30 17:49 | Electrocardiograph Report ---
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
[2018-01-31 04:12] LABS: Basophils % 0.4 %; Eosinophils # 0.1 K/mcL (0.0-0.6); Eosinophils % 1.5 %; Hemoglobin 14.9 g/dL (12.9-16.9); Immature Granulocytes % 0.3 % (0-4); Lymphocytes # 1.4 K/mcL (0.6-4.6); Lymphocytes % 17.4 %; Mean Corpuscular HGB Conc 34.7 g/dL (31.6-35.5); Mean Corpuscular Hemoglobin 31.3 pg (28.0-33.3); Mean Corpuscular Volume 90.3 fL (83.0-100.0); Mean Platelet Volume 9.2 fL (9.4-12.4); Monocytes # 0.9 K/mcL (0.0-1.3); Monocytes % 11.9 %; Neutrophils # 5.4 K/mcL (1.6-8.9); Platelet Count 159 K/mcL (140-400); Red Blood Count 4.76 M/mcL (4.19-5.50); Segmented Neutrophils % 68.5 %
[2018-01-31 04:32] LABS: BUN/Creatinine Ratio 13 (6-26); Blood Urea Nitrogen 13 mg/dL (8-23); Carbon Dioxide 21 mEq/L (23-29); Chloride 103 mEq/L (98-107); Glucose 148 mg/dL (70-105); Osmolality,Calculated 279 (280-300); Sodium 133 mEq/L (136-145); eGFR For African Americans > 60 (> 60); eGFR For Non-African Americans > 60 (> 60)
[2018-01-31] MEDS: Insulin LISPRO 300 UNITS/3 ML VIAL SQ SCH ×4 (08:51→23:06)
[2018-01-31] MEDS: Sennosides/Docusate Sodium TABLET PO SCH ×2 (09:02→19:49)
[2018-01-31] MEDS: Aspirin Enteric Coated 81 MG Tablet PO SCH (09:02)
[2018-01-31] MEDS: Finasteride 5 MG TABLET PO SCH (09:02)
[2018-01-31] MEDS: hydrALAZINE 25 MG TABLET PO SCH ×3 (09:02→23:09)
--- NOTE | 2018-01-31 10:03 | Cardiology Progress Note ---
Date of Encounter: 01/31/18 Time of Encounter: 08:15 Assessment and Plan (1) Unstable angina Current Visit: No Status: Acute C/o typical chest pain symptoms. Mild troponin in the setting of HTN urgency. Symptoms concerning for [place]. [facility] completed 01/30/18- S/p PYCA to ISR in the mLAD. TTE completed today and shows LVEF 55-60%. Normal LV chamber size and function. Mild asymmetric hypertrophy of the basal septum. Mild left ventricular diastolic dysfunction. Normal right ventricular structure and function. Mild aortic regurgitation. Borderline mild pulmonary hypertension. There was no complication from the procedure. Denies recurrent chest pain. No complications from right radial access site. Importance of DAPT with asa and plavix uninterrupted for minimum of one year discussed and she voiced understanding. Continue statin and BB. Activity restrictions reviewed.No driving for 4 days. No heavy lifting over 10 lbs for a week. Cardiac rehab ordered. Cardiology will sign off. Out-pt f/u will be coordinated by [facility]. (2) CAD (coronary artery disease) Current Visit: Yes Status: Chronic Prior cardiac testing: TTE 10/02/2012: LVEF 40%. Mildly dilated LV. Mild global and segmental systolic dysfunction. Normal LV diastolic function. Normal RV size and function. Moderate left atrial enlargement. Sclerotic trileaflet aortic valve with moderate central aortic regurgitation. Mild pulmonary hypertension, estimated RVSP 40 mmHg. TTE 07/09/2017: LVEF 50-55%. Mild diastolic dysfunction. Mildly dilated left ventricle. Mild to moderate AR. No pHTN. [facility] 07/08/2017: LM 15% stenosis. LAD proximal 99% stenosis (MEENU x1 placed) and mid 80% stenosis (MEENU x1 placed). Circumflex proximal 30% stenosis. OM1 95% stenosis (MEENU x1 placed), prior OM1 stent patent. RCA proximal 30%, mid 25% ISR , and distal 30% stenosis. [facility] completed yesterday. S/p PTCA to mLAD ISR. There is a 12 mm long, 95% in stent re- stenosis in the Mid LAD. Mid LAD with a final stenosis of 0%. 50% stenosis in the 1st Diagonal. There is a patent stent in the Prox. LAD. Patent stent in OM1. Mid RCA patent stent with a 30% in stent re- stenosis in the Mid RCA. Continue asa, statin, bb, and plavix. Qualifiers: Coronary Disease-Associated Artery/Lesion type: [place] artery [place] vs. transplanted heart: [place] heart Associated angina: angina presence unspecified Qualified Code(s): I25.10 - Atherosclerotic heart disease of [place] coronary artery without angina pectoris (3) HTN (hypertension) Current Visit: Yes Status: Chronic HTN urgency on admission. Cozaar increased to 75 mg daily. Increase as needed. Low sodium diet. Qualifiers: Hypertension type: essential hypertension Qualified Code(s): I10 - Essential (primary) hypertension Discussion w patient/family: The assessment and plan as outlined above was discussed with the patient and/or family members who expressed understanding and agreement. All questions were answered. Thank you for involving us in the care of your patient. Please call with any questions. Subjective Principal diagnosis: elevated troponin Interval history: Denies recurrent chest pain. STates he is concerned of recurrent chest pain once he is doing activity. B/p improved. Objective Vital Signs, Last 4 Hours Temp Pulse Resp BP Pulse Ox 01/31/18 09:00 70 01/31/18 07:41 97.9 F 72 16 155/78 95 Results 01/31/18 03:22 01/31/18 03:22 Lab Results 01/30/18 01/31/18 01/31/18 13:33 03:22 03:22 WBC 7.9 Hgb 14.9 Hct 43.0 Plt Count 159 APTT 75.7 H Sodium 133 L Potassium 4.0 Chloride 103 Carbon Dioxide 21 L BUN 13 Creatinine 1.03 Glucose 148 H Calcium 9.0 - VTE Documentation of Mechanical Device: Intermittent pneumatic compression device Consult Discharge Plan - Plan Referrals: Obinna Khanna CNP [Advanced Practice Nurse] - (office will call patient at home with follow up appointment) Porfirio Bearden MD [Primary Care Provider] - 02/07/18 2:15 pm
[2018-01-31] MEDS ORDERED: hydrALAZINE 25 MG TABLET PO ONE (11:42)
--- NOTE | 2018-01-31 18:47 | Internal Med Progress Note ---
Date of Encounter: 01/31/18 Time of Encounter: 11:00 - Assessment and plan (1) HTN (hypertension) Current Visit: Yes Status: Chronic Assessment and plan: Patient still with uncontrolled hypertension Patient was already started on hydralazine and losartan was increased in addition to increasing dosage of beta fatemeh. Will increase dose of hydralazine today and monitor Qualifiers: Hypertension type: essential hypertension Qualified Code(s): I10 - Essential (primary) hypertension (2) HLD (hyperlipidemia) Current Visit: Yes Status: Chronic Assessment and plan: Continue home medications. Qualifiers: Hyperlipidemia type: unspecified Qualified Code(s): E78.5 - Hyperlipidemia , unspecified (3) Diabetes Current Visit: Yes Status: Chronic Assessment and plan: Continue accuchecks and low dose SSI QID AC/HS. Hold home PO medications. 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 transplanted heart: [place] heart Associated angina: angina presence unspecified Qualified Code(s): I25.10 - Atherosclerotic heart disease of [place] coronary artery without angina pectoris (5) BPH (benign prostatic hyperplasia) Current Visit: Yes Status: Chronic Assessment and plan: Continue home medications. Qualifiers: Lower urinary tract symptom presence: unspecified whether lower urinary tract symptoms present Qualified Code(s): N40.0 - Benign prostatic hyperplasia without lower urinary tract symptoms (6) NSTEMI (non-ST elevated myocardial infarction) Current Visit: Yes Status: Acute Assessment and plan: Cardiology consulted; appreciate input. S/P LHC today with ballooning of LAD. ECHO showed EF 55-60%, and normal LV size and function, mild asymmetric hypertrophy of basal septum, mild LV diastolic dysfunction, normal RV structure and function, mild aortic regurgitation, and borderline mild pulmonary hypertension. Continue home aspirin, beta fatemeh, statin, and plavix. (7) DVT prophylaxis Current Visit: Yes Status: Acute Assessment and plan: Continue SCDs. - Time Spent With Patient Total time spent is greater than 50% in coordination of care (as documented) at patient's floor/unit and/or counseling patient: - Subjective Interval history: Patient with continued uncontrolled hypertension - Constitutional Vitals: Temp Pulse Resp BP Pulse Ox 98 F 57 15 149/68 98 01/31/18 15:23 01/31/18 15:55 01/31/18 15:23 01/31/18 15:23 01/31/18 11:08 General appearance: Present: cooperative, A&O X 3, pleasant, no acute distress, obese, answers questions appropriately - Respiratory Respiratory exam: Present: CTAB. Absent: accessory muscle use, rales, rhonchi, wheezes - Cardiovascular Cardiovascular exam: Present: RRR, +S1, +S2. Absent: diastolic murmur, gallop, rubs, systolic murmur Internal Medicine: Result - Labs CBC & Chem 7: 01/31/18 03:22 01/31/18 03:22 Labs: Short CBC 01/31/18 Range/Units 03:22 WBC 7.9 (4.3-11.1) K/mcL Hgb 14.9 (12.9-16.9) g/dL Hct 43.0 (37.5-50.1) % Plt Count 159 (140-400) K/mcL Neutrophils # 5.4 (1.6-8.9) K/mcL BMP 01/31/18 03:22 Sodium 133 L Potassium 4.0 Chloride 103 Carbon Dioxide 21 L BUN 13 Creatinine 1.03 Glucose 148 H Calcium 9.0 - ABG Interpretation ABG results: PT/INR, D-dimer PT 11.5 Seconds (9.4-12.1) 01/28/18 03:13 - VTE Documentation of Mechanical Device: Intermittent pneumatic compression device Consult Discharge Plan - Plan Referrals: Obinna Khanna, LABORATORY EQUIPMENT INSTALLER [Advanced Practice Nurse] - (office will call patient at home with follow up appointment) Porfirio Bearden MD [Primary Care Provider] - 02/07/18 2:15 pm
[2018-02-01] MEDS: Insulin LISPRO 300 UNITS/3 ML VIAL SQ SCH (07:43)
[2018-02-01] MEDS: Aspirin Enteric Coated 81 MG Tablet PO SCH (07:46)
[2018-02-01] MEDS: Finasteride 5 MG TABLET PO SCH (07:46)
[2018-02-01] MEDS: Sennosides/Docusate Sodium TABLET PO SCH (07:47)
[2018-02-01] MEDS: hydrALAZINE 25 MG TABLET PO SCH (07:47)
[2018-02-01 11:26] VITALS: BP 153/77
--- NOTE | 2018-02-01 11:52 | Discharge Summary ---
- NOTES TO OUTPATIENT PROVIDER Notes to Outpatient Provider: Follow-up with primary care provider for hypertension management Date of Encounter: 02/01/18 Time of Encounter: 11:00 - Discharge Diagnosis (1) HTN (hypertension) Priority: Primary Status: Chronic Qualifiers: Hypertension type: essential hypertension Qualified Code(s): I10 - Essential (primary) hypertension (2) HLD (hyperlipidemia) Priority: Secondary Status: Chronic Qualifiers: Hyperlipidemia type: unspecified Qualified Code(s): E78.5 - Hyperlipidemia , unspecified (3) Diabetes Priority: Secondary Status: Chronic Qualifiers: Diabetes mellitus type: type 2 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 transplanted heart: [place] heart Associated angina: angina presence unspecified Qualified Code(s): I25.10 - Atherosclerotic heart disease of [place] coronary artery without angina pectoris (5) BPH (benign prostatic hyperplasia) Priority: Secondary Status: Chronic Qualifiers: Lower urinary tract symptom presence: unspecified whether lower urinary tract symptoms present Qualified Code(s): N40.0 - Benign prostatic hyperplasia without lower urinary tract symptoms (6) NSTEMI (non-ST elevated myocardial infarction) Priority: Primary Status: Acute Hospital course: Patient is an 82-year-old male with past medical history significant for coronary arterial disease and hypertension who presented to the ER on 01/28/18 due to chest pain. Patient reported of having a 4 day history of intermittent, substernal, chest pain which she described as dull radiating down both arms as well as to his back. Patient reported that his symptoms was resolved with nitroglycerin. In the ER, she was found to have elevated cardiac biomarkers and was admitted to the progressive unit for ACS rule out. During patients hospital stay cardiology was consulted for non-STEMI and a left heart catheterization was done S/p PTCA to mLAD ISR. During patients hospital stay he was also found to have uncontrolled hypertension and his ARB inhibitor was increased and patient was started on hydralazine. Patients blood pressure is now well controlled and will be discharged to follow -up with primary care provider. - Time Spent with Patient Total time spent providing and/or coordinating discharge services: Less than 30 minutes - Discharge Medications Prescriptions: hydrALAZINE [HydrALAZINE] 50 mg PO Q8HR #180 tablet Losartan [Cozaar] 75 mg PO DAILY #90 tablet Home Medications: Aspirin [Lo-Dose Aspirin EC] 81 mg PO DAILY 07/08/17 [History] Finasteride [Proscar] 5 mg PO DAILY 07/08/17 [History] Metoprolol [Lopressor] 25 mg PO BID 07/08/17 [History] Nitroglycerin [Nitrostat] 0.4 mg SL Q5M PRN 07/08/17 [History] Braxton-3/Dha/Epa/Fish Oil [Fish Oil 1,000 mg Softgel] 1 cap PO DAILY 07/08/17 [ History] Simvastatin [Zocor] 40 mg PO HS 07/08/17 [History] Vitamin E Acetate [Vitamin E] 400 unit PO DAILY 07/08/17 [History] metFORMIN [Glucophage] 500 mg PO BID 07/08/17 [History] Clopidogrel [Plavix] 75 mg PO DAILY #30 tablet 07/09/17 [Rx] Losartan [Cozaar] 75 mg PO DAILY #90 tablet 02/01/18 [Rx] hydrALAZINE [HydrALAZINE] 50 mg PO Q8HR #180 tablet 02/01/18 [Rx] Allergies/Adverse Reactions: 3 Allergy/AdvReac Type Severity Reaction Status Date / Time No Known Allergies Allergy Verified 07/08/17 11:00 Date of admission: 01/28/18 09:09 Primary care physician: Porfirio Bearden MD Consults: 01/31/18 07:43 Consult to Cardiac Rehabilitation-Phase1 [CONS] Routine Comment: Reason for Consult: S/p PCI Call Completed: No - Constitutional Vitals: Temp Pulse Resp BP Pulse Ox 97.9 F 59 18 153/77 95 02/01/18 11:23 02/01/18 11:23 02/01/18 11:23 02/01/18 11:23 02/01/18 07:28 General appearance: Present: cooperative, A&O X 3, pleasant, no acute distress, obese, answers questions appropriately - Cardiovascular Cardiovascular exam: Present: RRR, +S1, +S2. Absent: diastolic murmur, gallop, rubs, systolic murmur - Patient Status Disposition: Home, Self-Care Condition: Fair - Discharge Instructions Instructions: Myocardial Infarction (DC), Chest Pain (DC), Left Heart Catheterization (DC), Chronic Hypertension (DC) Follow Up With: Obinna Khanna CNP [Advanced Practice Nurse] - (office will call patient at home with follow up appointment) Porfirio Bearden MD [Primary Care Provider] - 02/07/18 2:15 pm Additional Instructions: RISK FACTORS: STOP SMOKING: If you smoke, STOP. Smoking or tobacco use significantly increases your risk of heart disease because nicotine causes the arteries to narrow or constrict. It also causes fats to stick to the artery. Your chances of having a heart attack are greatly increased if you continue to smoke. For more information, call the education line for smoking cessation 5-933-HAZQARK EAT A LOW FAT/CHOLESTEROL/SODIUM DIET: This diet may help reduce your chances of having a heart attack. LIFTING: With affected extremity: Avoid bending, pushing off and lifting more than 2 pounds for 24 hours The following 48 hours, avoid lifting anything more than 5 pounds Avoid strenuous activity or repetitive motions ACTIVITY: You may walk or climb stairs as tolerated You can resume sexual activity as tolerated In general, you are encouraged to engage in a minimum of 30 minutes or more of moderate intensity physical activity, such as brisk walking, daily or at least 3 -4 times weekly BATHING Do not submerge the site into water (bath tub, hot tub, swimming pool, dishes) for 1 week. This can be a source for infection into the blood stream. You may shower after 24 hours SITE CARE: After 24 hours, you may remove the dressing and leave the site open to air. Keep the site clean and dry. Clean gently and pat dry. You can expect bruising and tenderness that gradually resolve within a week or two. Return to work as instructed per your physician Resume driving as instructed per physician Keep all scheduled follow up appointments Resume medications as instructed IMPORTANT: If prescribed a Platelet Aggregation Inhibitor such as, Plavix, Brilinta or Effient: Duration of therapy is minimum one year These medications are often used in combination with Aspirin in prevention of future heart attacks Never discontinue unless consult with your Coroner Forensic Technician STROKE (CVA) Risk factors for a stroke are: Age, cigarette smoking, diabetes, excessive alcohol consumption, family history, high blood pressure, overweight, physical inactivity, prior stroke, heart attack, diagnosis of carotid artery stenosis or other artery disease. Warning signs: Sudden numbness or weakness of the face, arm or leg; especially on one side of the body, sudden confusion, trouble speaking or understanding, sudden trouble seeing in one or both eyes, sudden trouble walking, dizziness, loss of balance or coordination, sudden severe headache with no cause. Call 911 or go to the Emergency Room. CONGESTIVE HEART FAILURE: If you have been diagnosed with Congestive Heart Failure (CHF) and your symptoms return, make an appointment with your physician Weigh yourself daily. Notify your physician if you have a weight gain of two or more pounds in one day or five or more pounds in one week. If you experience any difficulty breathing, please call 911 BLEEDING: Although the risk of bleeding is minimal, it can happen. If you have any bleeding from the site, apply firm pressure above the puncture site for 10-15 minutes. If the bleeding does not stop, continue manual pressure and call 911 Contact [facility] ( ) if: You develop a fever greater than 101 degrees Fahrenheit Your site becomes reddened or has any drainage You have an increase in pain or burning at the site or if a large knot forms at the site. If you experience chest pain, shortness of breath, dizziness, or extreme tiredness, stop the activity and rest. Please notify [facility] office if you experience any of these symptoms and they are not relieved by rest please call 911! - VTE Documentation of Mechanical Device: Intermittent pneumatic compression device
== END 2018-02-01 12:56 | disposition home or self-care (01) | DRG 251 ==
LOC: 2ANU 17:01 → EMEROO 17:01 → 2NNU 22:46 → SUATTDRO 01-28 09:09
PROVIDERS: ADMIT Internal Medicine Nephrology; ATTEND Hospitalist

== ENCOUNTER 2022-02-11 10:17 | Observation (INO) ==
[2022-02-11 11:45] LABS: Basophils # 0.1 K/mcL (0.0-0.2); Basophils % 0.8 %; Eosinophils % 0.6 %; Hematocrit 41.6 % (37.5-50.1); Hemoglobin 14.2 g/dL (12.9-16.9); Immature Granulocytes % 0.3 % (0-4); Lymphocytes # 1.1 K/mcL (0.6-4.6); Lymphocytes % 16.2 %; Mean Corpuscular HGB Conc 34.1 g/dL (31.6-35.5); Mean Corpuscular Hemoglobin 31.6 pg (28.0-33.3); Mean Corpuscular Volume 92.4 fL (83.0-100.0); Mean Platelet Volume 8.7 fL (9.4-12.4); Monocytes # 0.6 K/mcL (0.0-1.3); Monocytes % 8.7 %; Neutrophils # 4.8 K/mcL (1.6-8.9); Platelet Count 204 K/mcL (140-400); Red Cell Distribution Width 12.4 % (11.5-14.5); Segmented Neutrophils % 73.4 %; White Blood Count 6.6 K/mcL (4.3-11.1)
[2022-02-11 11:53] LABS: INR 0.9; Prothrombin Time 10.5 Seconds (9.4-12.1)
[2022-02-11 11:56] LABS: Activated Partial Thrombo Time 32.2 Seconds (26.0-36.0)
[2022-02-11 12:37] LABS: Calcium 8.7 mg/dL (8.6-10.3); Potassium 4.8 mEq/L (3.5-5.1); Troponin I 0.03 ng/mL (< 0.04)
[2022-02-11] MEDS ORDERED: Ondansetron 4 MG/2 ML VIAL IVP PRN (13:09)
[2022-02-11] MEDS ORDERED: Naloxone 0.4 MG/ML INJ IVP PRN (13:09)
[2022-02-11] MEDS ORDERED: Dextrose Gel 15 GM/37.5 ML TUBE PO PRN ×2 (13:57)
[2022-02-11] MEDS ORDERED: D5% in Water 1,000 ML IVC PRN (13:57)
[2022-02-11] MEDS ORDERED: *HR* Dextrose 50 % in Water (Syg) 50 ML SYRINGE IVP PRN (13:57)
[2022-02-11] MEDS: *HR* Heparin 5,000 UNIT/ML VIAL SQ SCH ×2 (15:48→20:21)
[2022-02-11] MEDS ORDERED: *HR* Labetalol 20 MG/4 ML SYRINGE IVP ONE (16:17)
[2022-02-11] MEDS: Insulin LISPRO 300 UNITS/3 ML VIAL SUBQ SCH ×2 (17:08→20:21)
[2022-02-12 00:44] LABS: Calcium 8.6 mg/dL (8.6-10.3); Potassium 4.2 mEq/L (3.5-5.1)
[2022-02-12 01:01] LABS: Basophils # 0.1 K/mcL (0.0-0.2); Basophils % 0.9 %; Eosinophils # 0.1 K/mcL (0.0-0.6); Hematocrit 40.4 % (37.5-50.1); Hemoglobin 13.5 g/dL (12.9-16.9); Immature Granulocytes % 0.4 % (0-4); Lymphocytes # 1.6 K/mcL (0.6-4.6); Lymphocytes % 29.5 %; Mean Corpuscular HGB Conc 33.4 g/dL (31.6-35.5); Mean Corpuscular Hemoglobin 31.6 pg (28.0-33.3); Mean Corpuscular Volume 94.6 fL (83.0-100.0); Monocytes # 0.6 K/mcL (0.0-1.3); Monocytes % 10.7 %; Neutrophils # 3.1 K/mcL (1.6-8.9); Platelet Count 189 K/mcL (140-400); Red Blood Count 4.27 M/mcL (4.19-5.50); Red Cell Distribution Width 12.6 % (11.5-14.5); Segmented Neutrophils % 56.5 %; White Blood Count 5.4 K/mcL (4.3-11.1)
[2022-02-12] MEDS ORDERED: *HR* Heparin 5,000 UNIT/ML VIAL IVP PRN ×2 (01:10)
[2022-02-12] MEDS ORDERED: Heparin 25,000UNIT/250ML 1/2NS 25,000 UNIT/250 ML IV.SOLN IVC SCH (01:15)
[2022-02-12 01:56] LABS: Hematocrit 41.2 % (37.5-50.1); Mean Corpuscular Hemoglobin 31.8 pg (28.0-33.3); Mean Corpuscular Volume 93.6 fL (83.0-100.0); Mean Platelet Volume 8.9 fL (9.4-12.4); Platelet Count 201 K/mcL (140-400); Red Cell Distribution Width 12.4 % (11.5-14.5); White Blood Count 5.5 K/mcL (4.3-11.1)
[2022-02-12 02:14] LABS: Heparin anti-factor XA UFH 0.05 IU/mL (0.30-0.70)
[2022-02-12 02:15] LABS: INR 0.9; Prothrombin Time 10.4 Seconds (9.4-12.1)
[2022-02-12] MEDS: Insulin LISPRO 300 UNITS/3 ML VIAL SUBQ SCH ×5 (06:25→20:40)
[2022-02-12] MEDS: amLODIPine 5 MG TABLET PO SCH (07:47)
[2022-02-12] MEDS: Finasteride 5 MG TABLET PO SCH (07:48)
[2022-02-12] MEDS: Aspirin Enteric Coated 81 MG Tablet PO SCH (07:49)
[2022-02-12] MEDS: lisinopriL 20 MG TABLET PO SCH (07:49)
[2022-02-12] MEDS: Multivit/Ca/Min/Fe/FA 1 TAB TABLET PO SCH (07:49)
[2022-02-12] MEDS: Cholecalciferol (D-3) 1,000 UNIT (25MCG) TABLET PO SCH (07:49)
[2022-02-12] MEDS ORDERED: Perflutren Lipid Microsphere 1.3 ML in 0.9 % Sodium Chloride 8.7 ML IVP PRN (08:14)
[2022-02-12] MEDS ORDERED: NON-FORMULARY MEDICATION 1 EACH EACH (Omega-3/Dha/Epa/Fish Oil [Fish Oil 1,000 Mg Softgel] PO SCH (09:00)
[2022-02-12 09:26] LABS: Chol/HDL Ratio 4.5 (0-4.9)
[2022-02-12 09:29] LABS: Troponin I 0.08 ng/mL (< 0.04)
[2022-02-12 10:20] LABS: Estimated Average Glucose 163 mg/dl; Hemoglobin A1C 7.3 %
[2022-02-12] MEDS: 0.9 % Sodium Chloride 1,000 ML IVC SCH (11:17)
[2022-02-12] MEDS ORDERED: *HR* Heparin 10,000 UNIT/10 ML VIAL ONE (13:08)
[2022-02-12] MEDS ORDERED: Heparin 1,000 UNITS/500 mL 500 ML ONE (13:08)
[2022-02-12] MEDS ORDERED: Iopamidol - 370 200 ML INFUS..BTL ONE (13:08)
[2022-02-12] MEDS ORDERED: Nitroglycerin 1,000 MCG/5 ML VIAL IV ONE (13:08)
[2022-02-12] MEDS ORDERED: 0.9 % Sodium Chloride 1,000 ML ONE (13:08)
[2022-02-12] MEDS ORDERED: *HR* Midazolam HCl 2 MG/2 ML VIAL ONE (13:28)
[2022-02-12] MEDS ORDERED: *HR* FentaNYL (PF) 100 MCG/2 ML VIAL ONE (13:28)
[2022-02-12] MEDS: Ranolazine 500 MG TAB.ER.12H PO SCH (20:39)
[2022-02-13 01:40] LABS: Basophils % 0.5 %; Eosinophils # 0.1 K/mcL (0.0-0.6); Hematocrit 40.3 % (37.5-50.1); Hemoglobin 13.6 g/dL (12.9-16.9); Immature Granulocytes % 0.5 % (0-4); Lymphocytes % 11.2 %; Mean Corpuscular HGB Conc 33.7 g/dL (31.6-35.5); Mean Corpuscular Hemoglobin 31.6 pg (28.0-33.3); Mean Corpuscular Volume 93.7 fL (83.0-100.0); Mean Platelet Volume 8.6 fL (9.4-12.4); Monocytes # 0.8 K/mcL (0.0-1.3); Monocytes % 8.9 %; Platelet Count 190 K/mcL (140-400); Red Cell Distribution Width 12.5 % (11.5-14.5); Segmented Neutrophils % 77.9 %
[2022-02-13 01:42] LABS: Neutrophils # 6.9 K/mcL (1.6-8.9); White Blood Count 8.8 K/mcL (4.3-11.1)
[2022-02-13] MEDS: 0.9 % Sodium Chloride 1,000 ML IVC SCH (01:49)
[2022-02-13 01:57] LABS: Calcium 8.5 mg/dL (8.6-10.3); Phosphorous 2.7 mg/dL (2.7-4.5); Potassium 4.1 mEq/L (3.5-5.1)
[2022-02-13] MEDS: Insulin LISPRO 300 UNITS/3 ML VIAL SUBQ SCH ×2 (08:13→12:24)
[2022-02-13] MEDS: Multivit/Ca/Min/Fe/FA 1 TAB TABLET PO SCH (08:13)
[2022-02-13] MEDS: Ranolazine 500 MG TAB.ER.12H PO SCH (08:13)
[2022-02-13] MEDS: Aspirin Enteric Coated 81 MG Tablet PO SCH (08:13)
[2022-02-13] MEDS: Cholecalciferol (D-3) 1,000 UNIT (25MCG) TABLET PO SCH (08:13)
[2022-02-13] MEDS: Finasteride 5 MG TABLET PO SCH (08:13)
[2022-02-13] MEDS: amLODIPine 5 MG TABLET PO SCH (08:13)
[2022-02-13] MEDS: lisinopriL 20 MG TABLET PO SCH (08:13)
[2022-02-13 11:23] VITALS: BP 138/72; PULSE 57; TEMP 97.9; O2SAT 95
== END 2022-02-13 14:49 | disposition home or self-care (01) ==
LOC: 3BNU 10:17 → EMEROOARM 10:17 → SUATTDRO 14:08 → 3BNU 15:08
PROVIDERS: ADMIT Family Medicine; ATTEND Nurse Practitioner